=== PATIENT | female | born 1975 | race Caucasian/White ===

== ENCOUNTER 2023-09-12 18:28 | Inpatient (IN) | payer OTHER ==
[2023-09-12] MEDS ORDERED: SODIUM CHLORIDE 0.9% 500 ML 500 ML IV STA (18:37)
[2023-09-12] MEDS ORDERED: LORazepam 2 MG/ML INJ IV STA ×3 (18:38→20:34)
[2023-09-12] MEDS ORDERED: LABETALOL 5 MG/ML VIAL MDV IVP STA (18:42)
--- NOTE | 2023-09-12 18:42 | ED ---
General Adult HPI - General Stated complaint: Hypertension Time Seen by Provider: 09/12/23 18:30 Source: patient, RN notes reviewed, old records reviewed - History of Present Illness Initial comments: This is a 47-year-old female who complains of high blood pressure. States she was going to [facility] for her methamphetamine abuse and heroin abuse. Patient states when she got there they took her blood pressure was severely elevated and she had a mild headache so they sent to the emergency department. Patient denies any numbness or focal weakness. Patient denies chest pain or difficulty breathing. Patient denies abdominal pain patient denies nausea vomiting or diarrhea. Patient denies any recent fever chills or cough - Related Data Allergies Allergy/AdvReac Type Severity Reaction Status Date / Time No Known Allergies Allergy Verified 09/12/23 18:53 Review of Systems ROS Statement: Those systems with pertinent positive or pertinent negative responses have been documented in the HPI. ROS Other: All systems not noted in ROS Statement are negative. General Exam - General Exam Comments Initial Comments: GENERAL: Patient is well-developed and well-nourished. Patient is nontoxic and well- hydrated and is in no acute distress. ENT: Neck is soft and supple. No significant lymphadenopathy is noted. Oropharynx is clear. Moist mucous membranes. Neck has full range of motion without eliciting any pain. EYES: The sclera were anicteric and conjunctiva were pink and moist. Extraocular movements were intact and pupils were equal round and reactive to light. Eyelids were unremarkable. PULMONARY: Unlabored respirations. Good breath sounds bilaterally. No audible rales rhonchi or wheezing was noted. CARDIOVASCULAR: There is a regular rate and rhythm without any murmurs gallops or rubs. ABDOMEN: Soft and nontender with normal bowel sounds. SKIN: Skin is clear with no lesions or rashes and otherwise unremarkable. NEUROLOGIC: Patient is alert and oriented x3. Cranial nerves II through XII are grossly intact. Motor and sensory are also intact. Normal speech, volume and content. Symmetrical smile. MUSCULOSKELETAL: Normal extremities with adequate strength and full range of motion. LYMPHATICS: No significant lymphadenopathy is noted PSYCHIATRIC: Normal psychiatric evaluation. Course Vital Signs 09/12/23 09/12/23 09/12/23 18:33 18:51 19:44 Temperature 98.2 F Pulse Rate 70 74 73 Respiratory 18 18 18 Rate Blood Pressure 244/129 219/132 164/112 O2 Sat by Pulse 98 96 92 L Oximetry Medical Decision Making - Medical Decision Making EKG was interpreted by myself. EKG shows a sinus rhythm at 70 bpm ID interval 285 QRSs 106 QT interval 442 QTC is 475 per patient has biphasic T waves. There is no ST segment elevation. Patient refused her chest x-ray Was pt. sent in by a medical professional or institution (, DEANA, IN HOME CAREGIVER, urgent care, hospital, or shelter...) When possible be specific @ -Was sent to us from [facility] Did you speak to anyone other than the patient for history (EMS, parent, family, police, friend...)? What history was obtained from this source @ -No Did you review nursing and triage notes (agree or disagree)? Why? @ -I reviewed and agree with nursing and triage notes Were old charts reviewed (outside hosp., previous admission, EMS record, old EKG, old radiological studies, urgent care reports/EKG's, shelter records)? Report findings @ -No old charts were reviewed Differential Diagnosis (chest pain, altered mental status, abdominal pain women, abdominal pain men, vaginal bleeding, weakness, fever, dyspnea, syncope, headache, dizziness, GI bleed, back pain, seizure, CVA, palpatations, mental health, musculoskeletal)? @ -Differential Headache: Migraine, tension, cluster, carbon monoxide, central venous thrombosis, pension karma temporal arteritis, acute closure glaucoma, intercranial hemorrhage, mastoiditis, sinusitis, head injury, this is not meant to be an all-inclusive list. EKG interpreted by me (3pts min.). @ -As above X-rays interpreted by me (1pt min.). @ -She refused the chest x-ray CT interpreted by me (1pt min.). @ -CT of the brain showed no acute abnormality. U/S interpreted by me (1pt. min.). @ -None done What testing was considered but not performed or refused? (CT, X-rays, U/S, labs)? Why? @ -None What meds were considered but not given or refused? Why? @ -None Did you discuss the management of the patient with other professionals (professionals i.e. , DEANA, IN HOME CAREGIVER, lab, RT, psych nurse, secondary social studies teacher, human resources admin, teacher, chief administrative officer, patient case coordinator)? Give summary @ -I spoke with the [facility] hospitalist and they agreed to admit the patient Was smoking cessation discussed for >3mins.? @ -No Was critical care preformed (if so, how long)? @ -No Were there social determinants of health that impacted care today? How? (Homelessness, low income, unemployed, alcoholism, drug addiction, transpor tation, low edu. Level, literacy, decrease access to med. care, prison, rehab)? @ -No Was there de-escalation of care discussed even if they declined (Discuss DNR or withdrawal of care, Hospice)? DNR status @ -No What co-morbidities impacted this encounter? (DM, HTN, Smoking, COPD, CAD, Cancer, CVA, ARF, Chemo, Hep., AIDS, mental health diagnosis, sleep apnea, morbid obesity)? @ -None Was patient admitted / discharged? Hospital course, mention meds given and route, prescriptions, significant lab abnormalities, going to OR and other pertinent info. @ -Patient was given labetalol and about her pressure down a little however she continued to be elevated at 194/101 and her heart rate would occasionally jump up into the 09/[birth year]1929 range for a few seconds so I if the patient hydralazine at this time to bring her pressure down and I spoke with the [facility] hospitalist and admitted the patient. Patient's drug screen came back positive for methamphetamine and cocaine. Patient also got Ativan and was resting comfortably throughout her ED stay Undiagnosed new problem with uncertain prognosis? @ -No Drug Therapy requiring intensive monitoring for toxicity (Heparin, Nitro, Insulin, Cardizem)? @ -No Were any procedures done? @ -No Diagnosis/symptom? @ -Polypharmacy Acute, or Chronic, or Acute on Chronic? @ -Acute Uncomplicated (without systemic symptoms) or Complicated (systemic symptoms)? @ -Complicated Side effects of treatment? @ -No Exacerbation, Progression, or Severe Exacerbation? @ -No Poses a threat to life or bodily function? How? (Chest pain, [place], [place], pneumonia, PE, COPD, DKA, ARF, appy, cholecystitis, CVA, Diverticulitis, Homicidal, Suicidal, threat to staff... and all critical care pts) @ -Yes this could lead to sudden Diagnosis/symptom? @ -Hypertensive urgency Acute, or Chronic, or Acute on Chronic? @ -Acute Uncomplicated (without systemic symptoms) or Complicated (systemic symptoms)? @ -Complicated Side effects of treatment? @ -none Exacerbation, Progression, or Severe Exacerbation] @ -no Poses a threat to life or bodily function? @ -Yes this can lead to end organ dysfunction directly - Lab Data Result diagrams: 09/12/23 18:45 09/12/23 18:45 Lab Results 09/12/23 09/12/23 09/12/23 Range/Units 18:45 18:45 18:45 WBC 7.9 (3.8-10.6) k/uL RBC 4.48 (3.80-5.40) m/uL Hgb 14.1 (11.4-16.0) gm/dL Hct 40.7 (34.0-46.0) % MCV 91.0 (80.0-100.0) fL MCH 31.5 (25.0-35.0) pg MCHC 34.6 (31.0-37.0) g/dL RDW 15.4 (11.5-15.5) % Plt Count 209 (150-450) k/uL MPV 7.2 Neutrophils % 62 % Lymphocytes % 20 % Monocytes % 7 % Eosinophils % 7 % Basophils % 1 % Neutrophils # 4.9 (1.3-7.7) k/uL Lymphocytes # 1.6 (1.0-4.8) k/uL Monocytes # 0.6 (0-1.0) k/uL Eosinophils # 0.6 (0-0.7) k/uL Basophils # 0.1 (0-0.2) k/uL PT 10.2 (10.0-12.5) sec INR 0.9 (<1.2) APTT 25.2 (22.0-30.0) sec Sodium (137-145) mmol/L Potassium (3.5-5.1) mmol/L Chloride (98-107) mmol/L Carbon Dioxide (22-30) mmol/L Anion Gap mmol/L BUN (7-17) mg/dL Creatinine (0.52-1.04) mg/dL Est GFR (CKD-EPI)AfAm (>60 ml/min/1.73 sqM) Est GFR (CKD-EPI)NonAf (>60 ml/min/1.73 sqM) Glucose (74-99) mg/dL Calcium (8.4-10.2) mg/dL Magnesium (1.6-2.3) mg/dL Total Bilirubin (0.2-1.3) mg/dL AST (14-36) U/L ALT (4-34) U/L Alkaline Phosphatase (38-126) U/L Troponin I (0.000-0.034) ng/mL Total Protein (6.3-8.2) g/dL Albumin (3.5-5.0) g/dL Urine Opiates Screen Not Detected (NotDetected) Ur Oxycodone Screen Not Detected (NotDetected) Urine Methadone Screen Not Detected (NotDetected) Ur Barbiturates Screen Not Detected (NotDetected) U Tricyclic Antidepress Not Detected (NotDetected) Ur Phencyclidine Scrn Not Detected (NotDetected) Ur Amphetamines Screen Detected H (NotDetected) U Methamphetamines Scrn Detected H (NotDetected) U Benzodiazepines Scrn Not Detected (NotDetected) Urine Cocaine Screen Detected H (NotDetected) U Marijuana (THC) Screen Not Detected (NotDetected) 09/12/23 09/12/23 Range/Units 18:45 18:45 WBC (3.8-10.6) k/uL RBC (3.80-5.40) m/uL Hgb (11.4-16.0) gm/dL Hct (34.0-46.0) % MCV (80.0-100.0) fL MCH (25.0-35.0) pg MCHC (31.0-37.0) g/dL RDW (11.5-15.5) % Plt Count (150-450) k/uL MPV Neutrophils % % Lymphocytes % % Monocytes % % Eosinophils % % Basophils % % Neutrophils # (1.3-7.7) k/uL Lymphocytes # (1.0-4.8) k/uL Monocytes # (0-1.0) k/uL Eosinophils # (0-0.7) k/uL Basophils # (0-0.2) k/uL PT (10.0-12.5) sec INR (<1.2) APTT (22.0-30.0) sec Sodium 136 L (137-145) mmol/L Potassium 4.1 (3.5-5.1) mmol/L Chloride 97 L (98-107) mmol/L Carbon Dioxide 29 (22-30) mmol/L Anion Gap 10 mmol/L BUN 33 H (7-17) mg/dL Creatinine 1.12 H (0.52-1.04) mg/dL Est GFR (CKD-EPI)AfAm 67 (>60 ml/min/1.73 sqM) Est GFR (CKD-EPI)NonAf 58 (>60 ml/min/1.73 sqM) Glucose 98 (74-99) mg/dL Calcium 9.0 (8.4-10.2) mg/dL Magnesium 2.0 (1.6-2.3) mg/dL Total Bilirubin 0.7 (0.2-1.3) mg/dL AST 33 (14-36) U/L ALT 24 (4-34) U/L Alkaline Phosphatase 97 (38-126) U/L Troponin I 0.020 (0.000-0.034) ng/mL Total Protein 6.3 (6.3-8.2) g/dL Albumin 3.5 (3.5-5.0) g/dL Urine Opiates Screen (NotDetected) Ur Oxycodone Screen (NotDetected) Urine Methadone Screen (NotDetected) Ur Barbiturates Screen (NotDetected) U Tricyclic Antidepress (NotDetected) Ur Phencyclidine Scrn (NotDetected) Ur Amphetamines Screen (NotDetected) U Methamphetamines Scrn (NotDetected) U Benzodiazepines Scrn (NotDetected) Urine Cocaine Screen (NotDetected) U Marijuana (THC) Screen (NotDetected) Disposition Clinical Impression: Hypertensive urgency, Polypharmacy Disposition: ADMITTED IP TO THIS HOSP Referrals: None,Stated [Primary Care Provider] - 1-2 days Time of Disposition: 20:07
[2023-09-12 19:09] LABS: Basophils # (A) 0.1 k/uL (0-0.2); Basophils % (A) 1 %; Eosinophils # (A) 0.6 k/uL (0-0.7); Eosinophils % (A) 7 %; HCT 40.7 % (34.0-46.0); HGB 14.1 gm/dL (11.4-16.0); Lymphocytes # (A) 1.6 k/uL (1.0-4.8); Lymphocytes % (A) 20 %; MCH 31.5 pg (25.0-35.0); MCHC 34.6 g/dL (31.0-37.0); Mean Platelet Volume 7.2; Monocytes # (A) 0.6 k/uL (0-1.0); Monocytes % (A) 7 %; Neutrophils # (A) 4.9 k/uL (1.3-7.7); Neutrophils % (A) 62 %; Platelet Count 209 k/uL (150-450); RBC 4.48 m/uL (3.80-5.40); RDW 15.4 % (11.5-15.5); WBC 7.9 k/uL (3.8-10.6)
[2023-09-12 19:14] LABS: INR 0.9 (<1.2); Partial Thromboplastin Time 25.2 sec (22.0-30.0); Prothrombin Time 10.2 sec (10.0-12.5)
[2023-09-12 19:15] LABS: Cocaine Screen,Urine Detected (NotDetected); Phencyclidine Screen,Urine Not Detected (NotDetected); Urn Cannabinoid Scrn Not Detected (NotDetected)
[2023-09-12 19:16] LABS: Amphetamine Screen,Urine Detected (NotDetected); Barbiturate Screen,Urine Not Detected (NotDetected); Benzodiazepines Screen,Urine Not Detected (NotDetected); Methadone Screen, Urine Not Detected (NotDetected); Opiate Screen,Urine Not Detected (NotDetected); Oxycodone Screen, Urine Not Detected (NotDetected); Tricyclic Antidepressant,Urine Not Detected (NotDetected)
[2023-09-12 19:17] LABS: ALT 24 U/L (4-34); AST 33 U/L (14-36); African American GFR (CKD) 67 (>60 ml/min/1.73 sqM); Albumin 3.5 g/dL (3.5-5.0); Alkaline Phosphatase 97 U/L (38-126); Anion Gap 10 mmol/L; Blood Urea Nitrogen 33 mg/dL (7-17); Carbon Dioxide 29 mmol/L (22-30); Chloride 97 mmol/L (98-107); Glucose 98 mg/dL (74-99); Non-African American GFR(CKD) 58 (>60 ml/min/1.73 sqM); Potassium 4.1 mmol/L (3.5-5.1); Sodium 136 mmol/L (137-145); Total Bilirubin 0.7 mg/dL (0.2-1.3); Total Protein 6.3 g/dL (6.3-8.2)
--- NOTE | 2023-09-12 19:24 | CT ---
EXAMINATION TYPE: CT brain wo con CT DLP: 1113.4 mGycm, Automated exposure control for dose reduction was used. DATE OF EXAM: 09/12/2023 7:05 PM COMPARISON: None. CLINICAL INDICATION:Female, 47 years old with history of Hypertensive headache, Hypertensive headache TECHNIQUE: Brain: Axial CT images of the brain were obtained with coronal and sagittal reformats created and rev iewed. Contrast used: None. Oral contrast used: None. FINDINGS: Brain: Extra-axial spaces: No abnormal extra-axial fluid collections. Ventricular system: Within normal limits Cerebral parenchyma: No acute intraparenchymal hemorrhage or mass effect. The campbell-white junction is well differentiated. Cerebellum: Unremarkable. Mass effect: No evidence of midline shift. Intracranial vasculature: unremarkable Soft tissues: Normal. Calvarium/osseous structures: No depressed skull fracture. Paranasal sinuses and mastoid air cells: Mild scattered paranasal sinus disease. Visualized orbits: Orbital contents are intact. IMPRESSION: No acute intracranial process.
[2023-09-12] MEDS ORDERED: hydrALAZINE HCL 20 MG/ML 1 ML VIAL IVP STA (20:03)
[2023-09-12] MEDS ORDERED: SODIUM CHLORIDE 0.9% 1,000 ML IV ONE (20:07)
[2023-09-12] MEDS ORDERED: ACETAMINOPHEN TAB 500 MG TAB PO STA (20:25)
--- NOTE | 2023-09-12 21:47 | CT ---
EXAMINATION TYPE: CT brain wo con CT DLP: 1196.4 mGycm, Automated exposure control for dose reduction was used. DATE OF EXAM: 09/12/2023 9:25 PM COMPARISON: None. CLINICAL INDICATION:Female, 47 years old with history of Hypertension, Per ER doctor, BP stone above [address] and was screaming of a headache. TECHNIQUE: Brain: Axial CT images of the brain were obtained with coronal and sagittal reformats created and rev iewed. Contrast used: None. Oral contrast used: None. FINDINGS: Brain: Extra-axial spaces: No abnormal extra-axial fluid collections. Ventricular system: Within normal limits Cerebral parenchyma: No acute intraparenchymal hemorrhage or mass effect. The campbell-white junction is well differentiated. Cerebellum: Unremarkable. Mass effect: No evidence of midline shift. Intracranial vasculature: unremarkable Soft tissues: Normal. Calvarium/osseous structures: No depressed skull fracture. Paranasal sinuses and mastoid air cells: Mild scattered paranasal sinus disease. Visualized orbits: Orbital contents are intact. IMPRESSION: No acute intracranial process.
[2023-09-13] MEDS ORDERED: LORazepam 2 MG/ML INJ IV STA ×2 (06:27→06:30)
[2023-09-13] MEDS ORDERED: hydrALAZINE HCL 20 MG/ML 1 ML VIAL IVP STA (08:25)
[2023-09-13] MEDS: cloNIDine HCL 0.2 MG TAB PO SCH ×2 (10:42→21:33)
[2023-09-13 11:07] LABS: Basophils % (A) 0 %; Eosinophils # (A) 0.6 k/uL (0-0.7); Eosinophils % (A) 7 %; HCT 43.3 % (34.0-46.0); HGB 14.7 gm/dL (11.4-16.0); Lymphocytes # (A) 1.4 k/uL (1.0-4.8); Lymphocytes % (A) 16 %; MCH 31.2 pg (25.0-35.0); MCHC 34.1 g/dL (31.0-37.0); MCV 91.5 fL (80.0-100.0); Mean Platelet Volume 7.5; Monocytes # (A) 0.7 k/uL (0-1.0); Monocytes % (A) 7 %; Neutrophils % (A) 68 %; Platelet Count 235 k/uL (150-450); RBC 4.73 m/uL (3.80-5.40); RDW 15.7 % (11.5-15.5); WBC 8.9 k/uL (3.8-10.6)
[2023-09-13 11:19] LABS: ALT 22 U/L (4-34); AST 32 U/L (14-36); African American GFR (CKD) 74 (>60 ml/min/1.73 sqM); Albumin 3.4 g/dL (3.5-5.0); Alkaline Phosphatase 94 U/L (38-126); Anion Gap 11 mmol/L; Blood Urea Nitrogen 28 mg/dL (7-17); Carbon Dioxide 24 mmol/L (22-30); Chloride 106 mmol/L (98-107); Glucose 117 mg/dL (74-99); Non-African American GFR(CKD) 65 (>60 ml/min/1.73 sqM); Sodium 141 mmol/L (137-145); Total Bilirubin 0.7 mg/dL (0.2-1.3); Total Protein 6.3 g/dL (6.3-8.2)
[2023-09-13 11:35] LABS: Potassium 4.1 mmol/L (3.5-5.1)
[2023-09-13] MEDS: hydrALAZINE HCL 20 MG/ML 1 ML VIAL IVP PRN (13:26)
--- NOTE | 2023-09-13 13:32 | P.HPIM ---
History of Present Illness H&P Date: 09/13/23 History of present illness; patient is 47-year-old lady with past medical signif icant for polysubstance abuse who presented to the ER as a transfer from [place] for elevated blood pressure. Patient was being [place] for rehab for her methamphetamine and heroin abuse. On checking there she was found to have elevated blood pressure. Patient was complaining of headache. Denied any chest pain. There is no complaint of shortness of breath. No complain of nausea, v omiting abdominal pain. Because of this elevated blood pressure, patient was sent to the ER for further evaluation Initial lab work done in the ER showed WBC 7.9, hemoglobin 14.1, platelet count 209, sodium 1:30, potassium 4.1, BUN 33, creatinine 1.12, glucose 98, calcium 9 Urine drug screen positive for amphetamines , methamphetamines, cocaine EKG done in the ER showed heart rate of 78, no ST segment elevation or depression seen, no T-wave inversions seen. CT head done showed no acute intracranial process Patient admitted to internal medicine service REVIEW OF SYSTEMS: CONSTITUTIONAL: No fever, no malaise, no fatigue. HEENT: No recent visual problems or hearing problems. Denied any sore throat. CARDIOVASCULAR: As mentioned in HPI PULMONARY: As mentioned in HPI GASTROINTESTINAL: No diarrhea, no nausea, no vomiting, no abdominal pain. NEUROLOGICAL: No weakness, no numbness. HEMATOLOGICAL: Denies any bleeding or petechiae. GENITOURINARY: Denies any burning micturition, frequency, or urgency. MUSCULOSKELETAL/RHEUMATOLOGICAL: Denies any joint pain, swelling, or any muscle pain. ENDOCRINE: Denies any polyuria or polydipsia. The rest of the 14-point review of systems is negative. PHYSICAL EXAMINATION: GENERAL: The patient is alert and oriented x3, not in any acute distress. Well developed, well nourished. HEENT: Pupils are round and equally reacting to light. EOMI. No scleral icterus. No conjunctival pallor. Normocephalic, atraumatic. No pharyngeal erythema. No t hyromegaly. CARDIOVASCULAR: S1 and S2 present. No murmurs, rubs, or gallops. PULMONARY: Chest is clear to auscultation, no wheezing or crackles. ABDOMEN: Soft, nontender, nondistended, normoactive bowel sounds. No palpable organomegaly. MUSCULOSKELETAL: No joint swelling or deformity. EXTREMITIES: No cyanosis, clubbing, or pedal edema. NEUROLOGICAL: Gross neurological examination did not reveal any focal deficits. SKIN: No rashes. Assessment and plan Uncontrolled hypertension Episodes of SVT Polysubstance abuse Monitor vital signs Monitor CBC Monitor CMP Continue telemetry monitoring Ordered 2-D echo Start patient on hydralazine 25 mg 3 times daily Start patient on clonidine 0.2 mg twice a day Ordered IV hydralazine as needed for blood pressure more than 180/90 Consult cardiology Labs and medication were reviewed.. Continue same treatment. Continue with symptomatic treatment. Resume home medication. Monitor labs and vitals. DVT and GI prophylaxis. Further recommendations as per clinical course of the patient Dictation was produced using [employer] dictation software. please excuse any grammatical, word or spelling errors. Past Medical History Past Medical History: CVA/TIA, Hypertension Additional Past Medical History / Comment(s): Endocarditis History of Any Multi-Drug Resistant Organisms: None Reported Past Surgical History: Appendectomy, Section, Cholecystectomy, Joint Replacement Additional Past Surgical History / Comment(s): right hip replacement, X3, Past Psychological History: Depression Smoking Status: Current every day smoker Past Alcohol Use History: None Reported Past Drug Use History: Cocaine, Heroin, Marijuana, Methamphetamine, Opiates, Prescription Drug Abuse Medications and Allergies Home Medications Medication Instructions Recorded Confirmed Type No Known Home Medications 09/12/23 09/12/23 History Allergies Allergy/AdvReac Type Severity Reaction Status Date / Time No Known Allergies Allergy Verified 09/12/23 20:24 Physical Exam Vitals: Vital Signs Temp Pulse Resp BP Pulse Ox 09/13/23 09:13 78 18 185/119 96 09/13/23 08:42 80 22 194/122 97 09/13/23 07:48 153/125 09/13/23 07:34 112 H 18 193/112 95 09/13/23 06:20 97.8 F 78 18 220/126 98 09/13/23 04:00 67 138/99 09/13/23 03:00 65 139/101 09/13/23 02:00 69 142/102 09/13/23 01:00 98 138/99 09/13/23 00:00 98 132/105 09/12/23 23:54 18 132/105 09/12/23 23:00 73 19 163/116 91 L 09/12/23 22:00 81 18 190/106 09/12/23 21:54 129 H 20 190/106 92 L 09/12/23 21:00 75 181/103 09/12/23 20:41 69 18 165/123 90 L 09/12/23 20:26 199/181 09/12/23 20:00 65 194/105 94 L 09/12/23 19:44 73 18 164/112 92 L 09/12/23 19:09 77 97 09/12/23 18:51 74 18 219/132 96 09/12/23 18:33 98.2 F 70 18 244/129 98 Intake and Output 09/12/23 09/13/23 09/13/23 22:59 06:59 14:59 Other: Weight 61.235 kg Results CBC & Chem 7: 09/13/23 10:59 09/13/23 10:59 Labs: Abnormal Lab Results - Last 24 Hours (Table) 09/12/23 09/12/23 Range/Units 18:45 18:45 Sodium 136 L (137-145) mmol/L Chloride 97 L (98-107) mmol/L BUN 33 H (7-17) mg/dL Creatinine 1.12 H (0.52-1.04) mg/dL Ur Amphetamines Screen Detected H (NotDetected) U Methamphetamines Scrn Detected H (NotDetected) Urine Cocaine Screen Detected H (NotDetected)
[2023-09-13] MEDS ORDERED: hydrALAZINE HCL 25 MG TAB PO STA (13:34)
[2023-09-13] MEDS: hydrALAZINE HCL 25 MG TAB PO SCH ×2 (13:36→21:33)
[2023-09-13] MEDS: NITROGLYCERIN-D5W PMX 50 MG in DEXTROSE/WATER 1 250ML.BAG IV SCH (13:58)
[2023-09-13] MEDS ORDERED: ACETAMINOPHEN TAB 325 MG TAB PO STA (15:16)
--- NOTE | 2023-09-13 16:02 | P.CNPUL ---
History of Present Illness Consult date: 09/13/23 Requesting physician: Perry West Reason for consult: other (Hypertensive urgency) Chief complaint: Hypertension, drug withdrawal History of present illness: This is a 47-year-old female patient who was recently admitted to [facility] for cocaine and methamphetamine abuse. She was only there 1 day and she was found to have significant hypertension headaches and was broug ht here to the emergency room last evening. CT scan of the brain revealed no acute intracranial process. He had been having ongoing refractory hypertension despite multiple medications without much improvement. She is currently on a nitroglycerin drip at 5 mcg/m. She will be initiated on clevidipine for blood pressure control and Precedex. This will require intensive care unit admission and we are consulted for the same. She is seen in the emergency department. Awake, alert, restless and agitated. Blood pressure 208/119. Mean arterial pressure of 148. White count 8.9. Hemoglobin 14.7. Sodium 141 potassium 4.1. Bicarb 24. BUN 28. Creatinine 1.03. Glucose 117. Troponins negative 2. Urine drug screen positive for amphetamines, methamphetamines and cocaine. She is maintaining O2 saturations in the 90s on room air. EKG reveals sinus tachycardia in the 130s. Review of Systems ROS unobtainable: due to mental status Past Medical History Past Medical History: CVA/TIA, Hypertension Additional Past Medical History / Comment(s): Endocarditis History of Any Multi-Drug Resistant Organisms: None Reported Past Surgical History: Appendectomy, Section, Cholecystectomy, Joint Replacement Additional Past Surgical History / Comment(s): right hip replacement, X3, Past Psychological History: Depression Smoking Status: Current every day smoker Past Alcohol Use History: None Reported Past Drug Use History: Cocaine, Heroin, Marijuana, Methamphetamine, Opiates, Prescription Drug Abuse Medications and Allergies Home Medications Medication Instructions Recorded Confirmed Type No Known Home Medications 09/12/23 09/12/23 History Allergies Allergy/AdvReac Type Severity Reaction Status Date / Time No Known Allergies Allergy Verified 09/12/23 20:24 Physical Exam Vitals: Vital Signs Temp Pulse Resp BP Pulse Ox 09/13/23 14:39 84 22 208/119 09/13/23 13:40 85 18 178/115 09/13/23 13:25 84 18 224/150 09/13/23 11:07 81 22 220/139 09/13/23 11:00 83 208/139 98 09/13/23 10:15 140 H 09/13/23 09:13 78 18 185/119 96 09/13/23 08:42 80 22 194/122 97 09/13/23 07:48 153/125 09/13/23 07:34 112 H 18 193/112 95 09/13/23 06:20 97.8 F 78 18 220/126 98 09/13/23 04:00 67 138/99 09/13/23 03:00 65 139/101 09/13/23 02:00 69 142/102 09/13/23 01:00 98 138/99 09/13/23 00:00 98 132/105 09/12/23 23:54 18 132/105 09/12/23 23:00 73 19 163/116 91 L 09/12/23 22:00 81 18 190/106 09/12/23 21:54 129 H 20 190/106 92 L 09/12/23 21:00 75 181/103 09/12/23 20:41 69 18 165/123 90 L 09/12/23 20:26 199/181 09/12/23 20:00 65 194/105 94 L 09/12/23 19:44 73 18 164/112 92 L 09/12/23 19:09 77 97 09/12/23 18:51 74 18 219/132 96 09/12/23 18:33 98.2 F 70 18 244/129 98 GENERAL EXAM: Alert, restless 47-year-old female, on room air, fairly comfortable in no apparent distress. HEAD: Normocephalic. EYES: Normal reaction of pupils, equal size. NOSE: Clear with pink turbinates. THROAT: No erythema or exudates. NECK: No masses, no JVD. CHEST: No chest wall deformity. LUNGS: Equal air entry with no crackles, wheeze, rhonchi or dullness. CVS: S1 and S2 normal with no audible murmur, regular rhythm. ABDOMEN: No hepatosplenomegaly, normal bowel sounds, no guarding or rigidity. SPINE: No scoliosis or deformity SKIN: No rashes CENTRAL NERVOUS SYSTEM: No focal deficits, tone is normal in all 4 extremities. EXTREMITIES: There is no peripheral edema. No clubbing, no cyanosis. Peripheral pulses are intact. Results - Laboratory Findings CBC and BMP: 09/13/23 10:59 09/13/23 10:59 PT/INR, D-dimer PT 10.2 sec (10.0-12.5) 09/12/23 18:45 INR 0.9 (<1.2) 09/12/23 18:45 Abnormal lab findings: Abnormal Labs 09/12/23 09/12/23 09/13/23 18:45 18:45 10:59 RDW 15.7 H Sodium 136 L Chloride 97 L BUN 33 H Creatinine 1.12 H Glucose Albumin Ur Amphetamines Screen Detected H U Methamphetamines Scrn Detected H Urine Cocaine Screen Detected H 09/13/23 10:59 RDW Sodium Chloride BUN 28 H Creatinine Glucose 117 H Albumin 3.4 L Ur Amphetamines Screen U Methamphetamines Scrn Urine Cocaine Screen Assessment and Plan Assessment: Hypertensive urgency suspect secondary to polysubstance withdrawal Episodes of supraventricular tachycardia secondary to above Polysubstance abuse with urine drug screen positive for amphetamines, methamphetamines and cocaine Recent admission to [facility] and found to be hypertensive History of CVA/TIA History of hypertension History of endocarditis Chronic and ongoing tobacco dependence History of depression History of polysubstance abuse including cocaine, heroin, marijuana, methamphetamines, opiates, and prescription and drug abuse Plan: The patient was seen and evaluated Computed tomography scan of the brain, EKGs, labs and medications reviewed Continue nitroglycerin drip and titrate up as tolerated Initiate clevidipine infusion Initiate Precedex infusion Echocardiogram pending Admit to the intensive care unit We will continue to follow and make further recommendations based on her clinical status I have personally seen and examined the patient, performed the documentation and the assessment and plan as written. Number of minutes spent on the visit: 20.
[2023-09-13] MEDS: DEXMEDETOMIDINE/0.9% NACL(PMX) 400 MCG in EMPTY BAG 1 BAG IV SCH ×2 (16:04→23:56)
[2023-09-13] MEDS: CLEVIDIPINE BUTYRATE 25 MG in EMPTY BAG 1 BAG IV SCH ×5 (16:07→23:22)
--- NOTE | 2023-09-13 17:09 | CA ---
Transthoracic Echo Report Name: Cinthya Mas Age: 47 Gender: F : 1975 Exam Date: 09/13/2023 15:20 Exam Location: [facility] Ht (in): 63 Wt (lb): 135 Ordering Physician: Perry West MD Attending/Referring Phys: [employer] Operator Head Josue Walker Procedure CPT: Indications: Hypertension uncontrolled Cardiac Hx: Technical Quality: Fair Contrast 1: Total Dose (mL): Contrast 2: Total Dose (mL): MEASUREMENTS (Male / Female) Normal Values 2D ECHO LV Diastolic Diameter PLAX 3.9 cm 4.2 - 5.9 / 3.9 - 5.3 cm LV Systolic Diameter PLAX 2.6 cm IVS Diastolic Thickness 1.0 cm 0.6 - 1.0 / 0.6 - 0.9 cm LVPW Diastolic Thickness 1.4 cm 0.6 - 1.0 / 0.6 - 0.9 cm LV Relative Wall Thickness 0.6 RV Internal Dim ED PLAX 3.6 cm LVOT Diameter 2.0 cm Aortic Root Diameter 2.6 cm LA Systolic Diameter LX 3.5 cm 3.0 - 4.0 / 2.7 - 3.8 cm LV Diastolic Volume MOD BP 38.2 cm??? 67 - 155 / 56 - 104 cm??? LV Systolic Volume MOD BP 9.5 cm??? 22 - 58 / 19 - 49 cm??? LV Ejection Fraction MOD BP 75.1 % >= 55 % LV Cardiac Index MOD BP 1504.2 cm???/min???m??? LV Diastolic Volume MOD 4C 42.8 cm??? LV Systolic Volume MOD 4C 9.5 cm??? LV Ejection Fraction MOD 4C 77.9 % LV Cardiac Index MOD 4C 1749.8 cm???/min???m??? LV Diastolic Length 4C 7.2 cm LV Systolic Length 4C 6.0 cm LV Diastolic Volume MOD 2C 34.4 cm??? LV Systolic Volume MOD 2C 9.1 cm??? LV Ejection Fraction MOD 2C 73.4 % LV Cardiac Index MOD 2C 1325.9 cm???/min???m??? LV Diastolic Length 2C 7.2 cm LV Systolic Length 2C 5.5 cm LA Volume 37.1 cm??? 18 - 58 / 22 - 52 cm??? LA Volume Index 22.3 cm???/m??? 16 - 28 cm???/m??? DOPPLER AV Peak Velocity 154.6 cm/s AV Peak Gradient 9.6 mmHg LVOT Peak Velocity 99.4 cm/s LVOT Peak Gradient 3.9 mmHg LVOT Velocity Time Integral 13.2 cm LVOT Stroke Volume 40.5 cm??? LVOT Stroke Volume Index 24.7 ml/m??? LVOT Cardiac Index 2123.7 cm???/min???m??? AV Area Cont Eq pk 2.0 cm??? MV Peak Velocity 144.1 cm/s MV Peak Gradient 8.3 mmHg MV Mean Velocity 65.8 cm/s MV Mean Gradient 2.1 mmHg MV Velocity Time Integral 30.8 cm TR Peak Velocity 321.3 cm/s TR Peak Gradient 41.3 mmHg Right Ventricular Systolic Press 46.3 mmHg PV Peak Velocity 113.7 cm/s PV Peak Gradient 5.2 mmHg FINDINGS Left Ventricle Normal LV size. Moderate to ling concentric LVH. Left ventricular ejection fraction is estimated at 65-70 %. Right Ventricle Normal right ventricular size. RVSP= 46mmHg. Right Atrium Mild right atrial dilatation. Left Atrium Normal left atrial size. Mitral Valve Structurally normal mitral valve. No mitral stenosis. No mitral regurgitation. Aortic Valve Trileaflet aortic valve. No aortic regurgitation. No aortic stenosis. Tricuspid Valve Structurally normal tricuspid valve. Severe TR. Pulmonic Valve Pulmonic valve not well visualized. No pulmonic regurgitation. Pericardium Normal pericardium. Aorta Normal size aortic root. CONCLUSIONS Concentric left ventricular hypertrophy with normal LV function Mild pulmonary hypertension Severe tricuspid regurgitation Previewed by: Dr. Tariq Montes MD (Electronically Signed) Final Date: 13 September 2023 17:08
[2023-09-13] MEDS ORDERED: NALOXONE 0.4 MG/ML 1 ML VIAL IV PRN (18:38)
[2023-09-13] MEDS ORDERED: ACETAMINOPHEN TAB 325 MG TAB PO PRN (18:38)
[2023-09-13 19:00] LABS: Glucose,Whole Blood 137 mg/dL (70-110)
[2023-09-14] MEDS: CLEVIDIPINE BUTYRATE 25 MG in EMPTY BAG 1 BAG IV SCH ×2 (01:12→03:19)
[2023-09-14] MEDS: DEXMEDETOMIDINE/0.9% NACL(PMX) 400 MCG in EMPTY BAG 1 BAG IV SCH (04:23)
[2023-09-14 06:42] LABS: Basophils % (A) 0 %; Eosinophils # (A) 0.2 k/uL (0-0.7); Eosinophils % (A) 2 %; HCT 47.2 % (34.0-46.0); HGB 15.4 gm/dL (11.4-16.0); Lymphocytes # (A) 1.7 k/uL (1.0-4.8); Lymphocytes % (A) 18 %; MCH 30.6 pg (25.0-35.0); MCHC 32.7 g/dL (31.0-37.0); MCV 93.4 fL (80.0-100.0); Mean Platelet Volume 7.4; Monocytes # (A) 0.5 k/uL (0-1.0); Monocytes % (A) 6 %; Neutrophils # (A) 6.6 k/uL (1.3-7.7); Neutrophils % (A) 71 %; Platelet Count 231 k/uL (150-450); RBC 5.05 m/uL (3.80-5.40); WBC 9.4 k/uL (3.8-10.6)
[2023-09-14 06:56] LABS: African American GFR (CKD) 67 (>60 ml/min/1.73 sqM); Anion Gap 12 mmol/L; Blood Urea Nitrogen 23 mg/dL (7-17); Calcium 9.6 mg/dL (8.4-10.2); Carbon Dioxide 19 mmol/L (22-30); Chloride 105 mmol/L (98-107); Glucose 110 mg/dL (74-99); Non-African American GFR(CKD) 58 (>60 ml/min/1.73 sqM); Potassium 4.9 mmol/L (3.5-5.1); Sodium 136 mmol/L (137-145)
--- NOTE | 2023-09-14 07:16 | P.CRDCN ---
History of Present Illness Consult date: 09/14/23 Chief complaint: Headache History of present illness: The patient is a 47-year-old female patient with a past medical history significant for hypertension and smoking and history of drug abuse. The patient was brought to the hospital from the rehab facility because of elevated blood pressure. The only symptoms she was experiencing his headache. She reported no pain in the chest and no shortness of breath and no dizziness or lightheadedness and no feeling of heart racing or fluttering and no presyncope or syncope. The pressure was elevated and consistent with hypertension urgency. Subsequently she underwent further cardiac testing including computed tomography scan of brain and that showed no acute abnormalities and also chest x-ray showed no acute abnormalities. The EKG showed sinus mechanism with no significant ST or T-wave abnormalities noted. The echo showed normal LV systolic function with evidence of hypertensive heart disease/severe left ventricular hypertrophy as well as moderate pulmonary hypertension and severe tricuspid regurgitation. The patient is not aware of any prior history of coronary artery disease or congestive heart failure or cardiac arrhythmia and never seen any lease buyer before. She was tested positive for cocaine and amphetamine as well. The rest of the blood work came in to be unremarkable. The examination is remarkable for mild change in mental status/lethargy along with regular rate and rhythm and clear breathing sounds bilaterally and no lower extremity edema and soft nontender abdomen. Please note that acute coronary syndrome was ruled out and the troponin came in to be unremarkable Assessment Hypertension urgency Drug abuse as described above Pulmonary hypertension likely secondary to hypertensive heart disease Systemic hypertension Smoking Plan Continue the current medical regimen Add non-dihydropyridine calcium channel master to the current medical regimen to treat the hypertension and tachycardia Continue monitoring the blood pressure Continue monitoring the heart rate Past Medical History Past Medical History: CVA/TIA, Hypertension Additional Past Medical History / Comment(s): Endocarditis History of Any Multi-Drug Resistant Organisms: None Reported Past Surgical History: Appendectomy, Section, Cholecystectomy, Joint Replacement Additional Past Surgical History / Comment(s): right hip replacement, X3, Past Psychological History: Depression Smoking Status: Current every day smoker Past Alcohol Use History: None Reported Past Drug Use History: Cocaine, Heroin, Marijuana, Methamphetamine, Opiates, Prescription Drug Abuse Medications and Allergies Home Medications Medication Instructions Recorded Confirmed Type No Known Home Medications 09/12/23 09/12/23 History Allergies Allergy/AdvReac Type Severity Reaction Status Date / Time No Known Allergies Allergy Verified 09/12/23 20:24 Physical Exam Vitals: Vital Signs Temp Pulse Resp BP Pulse Ox 09/14/23 07:00 113 H 8 L 153/90 98 09/14/23 06:55 82 27 H 153/90 98 09/14/23 06:50 79 9 L 153/90 98 09/14/23 06:45 75 23 98 09/14/23 06:40 134 H 29 H 97 09/14/23 06:35 97 27 H 145/104 99 09/14/23 06:30 158 H 22 97 09/14/23 06:25 77 32 H 154/92 97 09/14/23 06:20 89 29 H 154/92 97 09/14/23 06:15 96 7 L 133/107 99 09/14/23 06:10 111 H 26 H 133/107 97 09/14/23 06:05 104 H 31 H 133/107 98 09/14/23 06:00 116 H 28 H 124/103 98 09/14/23 05:55 77 11 L 124/103 98 09/14/23 05:50 82 6 L 124/103 98 09/14/23 05:45 121 H 0 L 124/103 98 09/14/23 05:40 89 11 L 124/103 98 09/14/23 05:35 114 H 28 H 111/83 97 09/14/23 05:30 99 30 H 112/88 99 09/14/23 05:25 111 H 16 127/97 99 09/14/23 05:20 79 27 H 127/97 97 09/14/23 05:15 76 29 H 124/98 98 09/14/23 05:10 104 H 16 124/98 99 09/14/23 05:05 86 26 H 124/98 97 09/14/23 05:00 108 H 27 H 97 09/14/23 04:55 85 22 99 09/14/23 04:50 86 23 135/89 97 09/14/23 04:45 100 30 H 99 09/14/23 04:40 80 30 H 97 09/14/23 04:35 79 18 120/99 99 09/14/23 04:30 80 31 H 108/85 97 09/14/23 04:25 80 28 H 97 09/14/23 04:20 81 14 98 09/14/23 04:15 84 7 L 99 09/14/23 04:10 80 29 H 121/90 99 09/14/23 04:05 85 6 L 121/90 98 09/14/23 04:00 97.7 F 98 31 H 136/98 98 09/14/23 03:55 109 H 29 H 98 09/14/23 03:50 89 29 H 97 09/14/23 03:45 89 8 L 99 09/14/23 03:40 81 30 H 99 09/14/23 03:35 105 H 31 H 116/84 99 09/14/23 03:30 85 29 H 121/88 99 09/14/23 03:25 122 H 22 121/88 98 09/14/23 03:20 105 H 6 L 121/88 98 09/14/23 03:15 113 H 6 L 127/99 99 09/14/23 03:10 78 12 127/99 99 09/14/23 03:05 81 29 H 127/99 97 09/14/23 03:00 84 20 115/86 98 09/14/23 02:55 80 11 L 115/86 98 09/14/23 02:50 79 29 H 115/86 98 09/14/23 02:45 80 39 H 117/91 98 09/14/23 02:40 81 27 H 117/91 98 09/14/23 02:35 111 H 29 H 117/91 99 09/14/23 02:30 80 28 H 98 09/14/23 02:25 78 22 98 09/14/23 02:20 84 17 130/101 99 09/14/23 02:15 82 22 98 09/14/23 02:10 111 H 9 L 99 09/14/23 02:05 80 28 H 123/87 98 09/14/23 02:00 216 H 27 H 135/91 98 09/14/23 01:55 82 25 H 135/91 98 09/14/23 01:50 82 28 H 135/91 98 09/14/23 01:45 83 24 133/115 98 09/14/23 01:40 85 20 133/115 98 09/14/23 01:35 83 32 H 133/115 97 09/14/23 01:30 82 11 L 99 09/14/23 01:25 118 H 28 H 98 09/14/23 01:20 79 30 H 149/100 98 09/14/23 01:15 83 10 L 99 09/14/23 01:10 85 30 H 99 09/14/23 01:05 73 8 L 136/115 98 09/14/23 01:00 112 H 28 H 157/102 98 09/14/23 00:55 85 24 157/102 98 09/14/23 00:50 86 27 H 121/97 98 09/14/23 00:45 85 33 H 118/101 97 09/14/23 00:40 80 29 H 118/101 98 09/14/23 00:35 85 30 H 118/101 97 09/14/23 00:30 115 H 32 H 137/105 97 09/14/23 00:25 102 H 10 L 137/105 98 09/14/23 00:20 83 11 L 98 09/14/23 00:15 80 28 H 152/109 98 09/14/23 00:10 115 H 27 H 152/109 98 09/14/23 00:05 81 30 H 152/109 97 09/14/23 00:00 97.7 F 83 29 H 143/112 98 09/13/23 23:55 118 H 29 H 143/112 98 09/13/23 23:50 86 31 H 143/112 98 09/13/23 23:45 81 27 H 149/112 98 09/13/23 23:40 123 H 27 H 149/112 98 09/13/23 23:35 85 27 H 149/112 98 09/13/23 23:30 116 H 10 L 168/102 98 09/13/23 23:25 85 26 H 168/102 98 09/13/23 23:20 82 23 168/102 98 09/13/23 23:15 80 15 163/109 98 09/13/23 23:10 77 31 H 163/109 98 09/13/23 23:05 86 25 H 163/109 98 09/13/23 23:00 107 H 30 H 149/115 98 09/13/23 22:55 122 H 15 149/115 98 09/13/23 22:50 85 30 H 149/115 97 09/13/23 22:45 112 H 31 H 165/106 98 09/13/23 22:40 87 14 165/106 98 09/13/23 22:35 86 32 H 165/106 98 09/13/23 22:30 78 27 H 127/109 98 09/13/23 22:25 121 H 11 L 135/116 98 09/13/23 22:20 123 H 12 135/116 98 09/13/23 22:15 86 11 L 140/114 99 09/13/23 22:10 88 13 140/114 98 09/13/23 22:05 130 H 27 H 140/114 98 09/13/23 22:00 82 11 L 147/114 98 09/13/23 21:55 123 H 27 H 147/114 98 09/13/23 21:50 118 H 11 L 147/114 98 09/13/23 21:45 79 9 L 144/92 98 09/13/23 21:40 80 27 H 144/92 98 09/13/23 21:35 130 H 37 H 144/92 97 09/13/23 21:30 85 29 H 143/114 98 09/13/23 21:25 86 13 143/114 98 09/13/23 21:20 114 H 29 H 143/114 97 09/13/23 21:15 80 22 156/108 97 09/13/23 21:10 71 28 H 133/102 97 09/13/23 21:05 72 29 H 133/102 97 09/13/23 21:00 74 31 H 150/102 97 09/13/23 20:55 72 25 H 150/102 97 09/13/23 20:50 91 16 150/102 98 09/13/23 20:45 73 33 H 163/102 97 09/13/23 20:40 90 30 H 163/102 98 09/13/23 20:35 86 16 163/102 98 09/13/23 20:30 81 29 H 171/111 97 09/13/23 20:25 133 H 18 171/111 97 09/13/23 20:20 69 28 H 171/111 97 09/13/23 20:15 78 28 H 179/101 97 09/13/23 20:10 84 29 H 179/101 97 09/13/23 20:05 93 30 H 179/101 96 09/13/23 20:00 73 29 H 169/112 97 09/13/23 19:55 69 29 H 169/112 97 09/13/23 19:50 74 27 H 169/112 97 09/13/23 19:45 73 28 H 171/113 96 09/13/23 19:40 83 28 H 171/113 96 09/13/23 19:35 147 H 27 H 171/113 96 09/13/23 19:30 73 25 H 168/105 96 09/13/23 19:25 76 29 H 168/105 96 09/13/23 19:20 76 28 H 168/105 97 09/13/23 19:15 78 28 H 183/105 95 09/13/23 19:10 72 28 H 183/105 95 09/13/23 19:05 81 30 H 183/105 96 09/13/23 19:00 72 10 L 195/132 97 09/13/23 18:55 90 10 L 195/132 97 09/13/23 18:53 98.0 F 89 16 190/109 97 09/13/23 18:52 76 10 L 09/13/23 18:40 172/131 09/13/23 18:35 89 190/109 09/13/23 18:30 87 176/97 09/13/23 18:25 84 181/111 09/13/23 18:20 80 174/99 09/13/23 18:15 68 193/121 09/13/23 18:10 60 187/103 09/13/23 18:05 63 213/116 09/13/23 18:00 97.2 F L 70 199/118 09/13/23 17:55 62 199/118 96 09/13/23 17:50 55 L 197/115 96 09/13/23 17:45 97 161/111 97 09/13/23 17:35 69 201/126 97 09/13/23 17:31 64 218/136 97 09/13/23 17:27 85 205/144 97 09/13/23 17:15 67 211/149 97 09/13/23 17:00 78 240/147 09/13/23 16:53 85 240/147 98 09/13/23 16:45 80 218/137 99 09/13/23 16:38 79 231/130 97 09/13/23 16:30 83 233/142 100 09/13/23 16:23 79 235/144 99 09/13/23 16:18 79 235/144 97 09/13/23 16:00 76 238/149 09/13/23 15:00 83 204/138 09/13/23 14:39 84 22 208/119 09/13/23 13:40 85 18 178/115 09/13/23 13:25 84 18 224/150 09/13/23 11:07 81 22 220/139 09/13/23 11:00 83 208/139 98 09/13/23 10:15 140 H 09/13/23 09:13 78 18 185/119 96 09/13/23 08:42 80 22 194/122 97 09/13/23 07:48 153/125 09/13/23 07:34 112 H 18 193/112 95 Intake and Output 09/13/23 09/14/23 09/14/23 22:59 06:59 14:59 Intake Total 222.822 306.394 Output Total 170 435 Balance 52.822 -128.606 Intake: Intake, IV Titration 222.822 306.394 Amount Clevidipine Butyrate 25 157.700 145.968 mg In Empty Bag 1 bag @ 1 MG/HR 2 mls/hr IV .Q24H DIONNE Rx#:[id number] Dexmedetomidine/0.9% NaCl 23.372 152.501 (Pmx) 400 mcg In Empty Bag 1 bag @ 0.2 MCG/KG/HR 3.062 mls/hr IV .Q24H D[facility]NE Rx#:[id number] Nitroglycerin-D5w Pmx 50 41.750 7.925 mg In Dextrose/Water 1 250ml.bag @ 5 MCG/MIN 1.5 mls/hr IV .Q24H DIONNE Rx#: [id number] Output: Urine 170 435 Other: Voiding Method Indwelling Catheter Indwelling Catheter Weight 61 kg Results 09/14/23 05:43 09/14/23 05:43 Cardiac Enzymes 09/13/23 09/13/23 Range/Units 10:59 10:59 AST 32 (14-36) U/L Troponin I 0.017 (0.000-0.034) ng/mL CBC 09/13/23 09/14/23 Range/Units 10:59 05:43 WBC 8.9 9.4 (3.8-10.6) k/uL RBC 4.73 5.05 (3.80-5.40) m/uL Hgb 14.7 15.4 (11.4-16.0) gm/dL Hct 43.3 47.2 H (34.0-46.0) % Plt Count 235 231 (150-450) k/uL Comprehensive Metabolic Panel 09/13/23 09/14/23 Range/Units 10:59 05:43 Sodium 141 136 L (137-145) mmol/L Potassium 4.1 4.9 (3.5-5.1) mmol/L Chloride 106 105 (98-107) mmol/L Carbon Dioxide 24 19 L (22-30) mmol/L BUN 28 H 23 H (7-17) mg/dL Creatinine 1.03 1.12 H (0.52-1.04) mg/dL Glucose 117 H 110 H (74-99) mg/dL Calcium 9.0 9.6 (8.4-10.2) mg/dL AST 32 (14-36) U/L ALT 22 (4-34) U/L Alkaline Phosphatase 94 (38-126) U/L Total Protein 6.3 (6.3-8.2) g/dL Albumin 3.4 L (3.5-5.0) g/dL Current Medications Generic Name Dose Route Start Last Admin Trade Name Freq PRN Reason Stop Dose Admin Acetaminophen 650 mg 09/13/23 18:38 Acetaminophen Tab 325 Mg Tab PO Q4HR PRN Fever and/or Mild Pain Clonidine 0.2 mg 09/13/23 11:00 09/13/23 21:33 Clonidine Hcl 0.2 Mg Tab PO 0.2 mg BID DIONNE Administration Hydralazine HCl 10 mg 09/13/23 10:32 09/13/23 13:26 Hydralazine Hcl 20 Mg/Ml 1 Ml Vial IVP 10 mg Q6HR PRN Administration Blood Pressure - High Hydralazine HCl 25 mg 09/13/23 16:00 09/13/23 21:33 Hydralazine Hcl 25 Mg Tab PO 25 mg TID DIONNE Administration Nitroglycerin/Dextrose 50 mg/ 250 mls @ 1.5 mls/hr 09/13/23 13:45 09/14/23 02:37 IV Solution IV 0 mcg/min .Q24H DIONNE 0 mls/hr Titration Protocol 5 MCG/MIN Clevidipine 25 mg/ IV Solution 50 mls @ 2 mls/hr 09/13/23 15:30 09/14/23 05:41 IV 0 mg/hr .Q24H D[facility] 0 mls/hr Titration Protocol 1 MG/HR Dexmedetomidine HCl 400 mcg/ 100 mls @ 3.062 mls/hr 09/13/23 15:30 09/14/23 06:26 IV Solution IV 0.6 mcg/kg/hr .Q24H D[facility] 9.185 mls/hr Titration Protocol 0.2 MCG/KG/HR Naloxone HCl 0.2 mg 09/13/23 18:38 Naloxone 0.4 Mg/Ml 1 Ml Vial IV Q2M PRN Opioid Reversal Intake and Output 09/13/23 09/14/23 09/14/23 22:59 06:59 14:59 Intake Total 222.822 306.394 Output Total 170 435 Balance 52.822 -128.606 Intake: Intake, IV Titration 222.822 306.394 Amount Clevidipine Butyrate 25 157.700 145.968 mg In Empty Bag 1 bag @ 1 MG/HR 2 mls/hr IV .Q24H [facility] Rx#:[id number] Dexmedetomidine/0.9% NaCl 23.372 152.501 (Pmx) 400 mcg In Empty Bag 1 bag @ 0.2 MCG/KG/HR 3.062 mls/hr IV .Q24H [facility] Rx#:[id number] Nitroglycerin-D5w Pmx 50 41.750 7.925 mg In Dextrose/Water 1 250ml.bag @ 5 MCG/MIN 1.5 mls/hr IV .Q24H [facility] Rx#: [id number] Output: Urine 170 435 Other: Voiding Method Indwelling Catheter Indwelling Catheter Weight 61 kg 09/14/23 05:43 09/14/23 05:43
[2023-09-14] MEDS: hydrALAZINE HCL 25 MG TAB PO SCH ×3 (08:42→21:03)
[2023-09-14] MEDS: DILTIAZEM ORAL 30 MG TAB PO SCH ×3 (08:42→21:03)
[2023-09-14] MEDS: cloNIDine HCL 0.2 MG TAB PO SCH (08:55)
[2023-09-14] MEDS: QUEtiapine 25 MG TAB PO SCH ×3 (08:55→21:04)
--- NOTE | 2023-09-14 12:40 | P.PN ---
Subjective Progress Note Date: 09/14/23 This is a 47-year-old female patient who was recently admitted to [facility] for cocaine and methamphetamine abuse. She was only there 1 day and she was found to have significant hypertension headaches and was brought here to the emergency room last evening. CT scan of the brain revealed no acute intracranial process. He had been having ongoing refractory hypertension despite multiple medications without much improvement. She is currently on a nitroglycerin drip at 5 mcg/m. She will be initiated on clevidipine for blood pressure control and Precedex. This will require i ntensive care unit admission and we are consulted for the same. She is seen in the emergency department. Awake, alert, restless and agitated. Blood pressure 208/119. Mean arterial pressure of 148. White count 8.9. Hemoglobin 14.7. Sodium 141 potassium 4.1. Bicarb 24. BUN 28. Creatinine 1.03. Glucose 117. Troponins negative 2. Urine drug screen positive for amphetamines, methamphetamines and cocaine. She is maintaining O2 saturations in the 90s on room air. EKG reveals sinus tachycardia in the 130s. The patient is seen today 09/14/2023 in follow-up in the intensive care unit. She is currently resting comfortably in bed. Awake and alert in no acute distress. She is continued on Precedex at 0.4 mcg/kg per hour. He is maintaining good O2 saturation in the mid 90s on room air. She's been afebrile. Hemodynamically stable. Having some episodes of brief SVT. Cardiology is consulted. Echocardiogram revealed concentric LVH with normal LV function. Mild pulmonary hypertension. Severe tricuspid regurgitation. White count 9.4. Hemoglobin 15.4. Platelets 231. Sodium 136. Potassium 4.9. Bicarb 19. BUN 23. Creatinine 1.12. Glucose 110. She is continued on clonidine, Cardizem, hydralazine for blood pressure control. She is off the clevidipine and nitroglycerin drips. Objective - Vital Signs Vital signs: Vital Signs Temp 97.7 F 09/14/23 08:00 Pulse 79 09/14/23 11:00 Resp 21 09/14/23 11:00 BP 111/75 09/14/23 11:00 Pulse Ox 97 09/14/23 11:00 FiO2 Intake & Output 09/13/23 09/14/23 09/14/23 18:59 06:59 18:59 Intake Total 78.835 450.381 235.186 Output Total 605 460 Balance 78.835 -154.619 -224.814 Weight 61 kg Intake: Intake, IV Titration 78.835 450.381 35.186 Amount Clevidipine Butyrate 25 50.000 253.668 mg In Empty Bag 1 bag @ 1 MG/HR 2 mls/hr IV .Q24H [facility] Rx#:[id number] Dexmedetomidine/0.9% NaCl 20.310 155.563 35.186 (Pmx) 400 mcg In Empty Bag 1 bag @ 0.2 MCG/KG/HR 3.062 mls/hr IV .Q24H [facility]IONNE Rx#:[id number] Nitroglycerin-D5w Pmx 50 8.525 41.150 mg In Dextrose/Water 1 250ml.bag @ 5 MCG/MIN 1.5 mls/hr IV .Q24H [facility]IONNE Rx#: [id number] Oral 200 Output: Urine 605 460 Other: Voiding Method Indwelling Catheter Indwelling Catheter - Exam GENERAL EXAM: Alert, 47-year-old female, on room air, comfortable in no apparent distress. HEAD: Normocephalic. EYES: Normal reaction of pupils, equal size. NOSE: Clear with pink turbinates. THROAT: No erythema or exudates. NECK: No masses, no JVD. CHEST: No chest wall deformity. LUNGS: Equal air entry with no crackles, wheeze, rhonchi or dullness. CVS: S1 and S2 normal with no audible murmur, regular rhythm. ABDOMEN: No hepatosplenomegaly, normal bowel sounds, no guarding or rigidity. SPINE: No scoliosis or deformity SKIN: No rashes CENTRAL NERVOUS SYSTEM: No focal deficits, tone is normal in all 4 extremities. EXTREMITIES: There is no peripheral edema. No clubbing, no cyanosis. Peripheral pulses are intact. - Labs CBC & Chem 7: 09/14/23 05:43 09/14/23 05:43 Labs: Abnormal Lab Results - Last 24 Hours (Table) 09/13/23 09/14/23 09/14/23 Range/Units 18:58 05:43 05:43 Hct 47.2 H (34.0-46.0) % RDW 16.0 H (11.5-15.5) % Sodium 136 L (137-145) mmol/L Carbon Dioxide 19 L (22-30) mmol/L BUN 23 H (7-17) mg/dL Creatinine 1.12 H (0.52-1.04) mg/dL Glucose 110 H (74-99) mg/dL POC Glucose (mg/dL) 137 H (70-110) mg/dL Assessment and Plan Assessment: Hypertensive urgency suspect secondary to polysubstance withdrawal Episodes of supraventricular tachycardia secondary to above Polysubstance abuse with urine drug screen positive for amphetamines, methamphetamines and cocaine Recent admission to [facility] and found to be hypertensive History of CVA/TIA History of hypertension History of endocarditis Chronic and ongoing tobacco dependence History of depression History of polysubstance abuse including cocaine, heroin, marijuana, methamphetamines, opiates, and prescription and drug abuse Plan: The patient was seen and evaluated Labs and medications reviewed Continue Precedex infusion for a total of 24 hours Stable and on room air Blood pressure improved and on oral medications We will continue to follow I have personally seen and examined the patient, performed the documentation and the assessment and plan as written. Number of minutes spent on the visit: 10.
[2023-09-14] MEDS: NITROGLYCERIN-D5W PMX 50 MG in DEXTROSE/WATER 1 250ML.BAG IV SCH (15:05)
--- NOTE | 2023-09-14 18:55 | P.PN ---
Subjective Progress Note Date: 09/14/23 History of present illness; patient is 47-year-old lady with past medical significant for polysubstance abuse who presented to the ER as a transfer from [place] for elevated blood pressure. Patient was being [place] for rehab for her methamphetamine and heroin abuse. On checking there she was found to have elevated blood pressure. Patient was complaining of headache. Denied any chest pain. There is no complaint of shortness of breath. No complain of nausea, vomiting abdominal pain. Because of this elevated blood pressure, patient was sent to the ER for further evaluation Initial lab work done in the ER showed WBC 7.9, hemoglobin 14.1, platelet count 209, sodium 1:30, potassium 4.1, BUN 33, creatinine 1.12, glucose 98, calcium 9 Urine drug screen positive for amphetamines , methamphetamines, cocaine EKG done in the ER showed heart rate of 78, no ST segment elevation or depressi on seen, no T-wave inversions seen. CT head done showed no acute intracranial process Patient admitted to internal medicine service 09/14/2023 Assumed care of the patient today. Remains in the intensive care unit. From [place] for polysubstance abuse with drug toxicology showing amphetamines, methamphetamines, cocaine. Patient was on IV cleviprex and IV precedex which are currently on hold. Would recommend to decrease clonidine at this time and begin weaning. Patient was also given nitro gtt for hypertension. Most recent BP 146/84. Patient is lethargic. Sodium 136, potassium 4.9, BUN 23, creatinine 1.12, glucose 110. Echocardiogram showing normal LV function mild pulmonary hypertension and severe TR. REVIEW OF SYSTEMS: CONSTITUTIONAL: No fever, no malaise, no fatigue. HEENT: No recent visual problems or hearing problems. Denied any sore throat. CARDIOVASCULAR: No chest pain, orthopnea, PND, no palpitations, no syncope. PULMONARY: No shortness of breath, no cough, no hemoptysis. GASTROINTESTINAL: No diarrhea, no nausea, no vomiting, no abdominal pain. NEUROLOGICAL: No headaches, no weakness, no numbness. Physical Examination -GENERAL: The patient is alert and oriented x2-3, lethargic, mildly drowsy Well developed, well nourished. Generally weak HEENT: Pupils are round and equally reacting to light. EOMI. No scleral icterus. No conjunctival pallor. Normocephalic, atraumatic. No pharyngeal erythema. No thyromegaly. CARDIOVASCULAR: S1 and S2 present. No murmurs, rubs, or gallops. PULMONARY: Chest is clear to auscultation, no wheezing , no crackles. ABDOMEN: Soft, nontender, nondistended, normoactive bowel sounds. No palpable organomegaly. MUSCULOSKELETAL: No joint swelling or deformity. -EXTREMITIES: No cyanosis, clubbing,. Bilateral pitting leg edema. NEUROLOGICAL: Gross neurological examination did not reveal any focal deficits. Diffuse weakness SKIN: No rashes. no petechiae. Assessment Uncontrolled hypertension requiring nitroglycerin likely due to withdrawal from cocaine Episodes of SVT Severe tricuspid regurgitation Polysubstance abuse Hx of CVA/TIA Hx of hypertension Hx of endocarditis Nicotine dependence GI prophylaxis DVT prophylaxis Full Code Plan Nitroglycerin GTT has been discontinued and blood pressure is more controlled Haldol and seroquel as needed Decrease clonidine to 0.1 mg BID Continue oral cardizem On PO hydralazine and IV hydralazine PRN Repeat labs in AM The impression and plan of care has been dictated by Elizabeth Blas, Nurse Practitioner as directed. Dr. Norma MD I have performed a history and physical examination and medical decision making of this patient, discussed the same with the dictator, and agree with the dictators assessment and plan as written, documented as a scribe. Based on total visit time, I have performed more than 50% of this visit. Objective - Vital Signs Vital signs: Vital Signs Temp 97.9 F 09/14/23 16:00 Pulse 121 H 09/14/23 17:00 Resp 13 09/14/23 17:00 BP 146/84 09/14/23 17:00 Pulse Ox 98 09/14/23 17:00 FiO2 Intake & Output 09/13/23 09/14/23 09/14/23 18:59 06:59 18:59 Intake Total 78.835 867.632 5671.176 Output Total 605 1070 Balance 78.835 -154.619 483.176 Weight 61 kg Intake: Intake, IV Titration 78.835 450.381 53.176 Amount Clevidipine Butyrate 25 50.000 253.668 mg In Empty Bag 1 bag @ 1 MG/HR 2 mls/hr IV .Q24H [facility] Rx#:[id number] Dexmedetomidine/0.9% NaCl 20.310 155.563 53.176 (Pmx) 400 mcg In Empty Bag 1 bag @ 0.2 MCG/KG/HR 3.062 mls/hr IV .Q24H [facility] Rx#:[id number] Nitroglycerin-D5w Pmx 50 8.525 41.150 mg In Dextrose/Water 1 250ml.bag @ 5 MCG/MIN 1.5 mls/hr IV .Q24H [facility] Rx#: [id number] Oral 1500 Output: Urine 605 1070 Other: Voiding Method Indwelling Catheter Indwelling Catheter - Labs CBC & Chem 7: 09/14/23 05:43 09/14/23 05:43 Labs: Abnormal Lab Results - Last 24 Hours (Table) 09/13/23 09/14/23 09/14/23 Range/Units 18:58 05:43 05:43 Hct 47.2 H (34.0-46.0) % RDW 16.0 H (11.5-15.5) % Sodium 136 L (137-145) mmol/L Carbon Dioxide 19 L (22-30) mmol/L BUN 23 H (7-17) mg/dL Creatinine 1.12 H (0.52-1.04) mg/dL Glucose 110 H (74-99) mg/dL POC Glucose (mg/dL) 137 H (70-110) mg/dL Assessment and Plan Time with Patient: Less than 30
[2023-09-14] MEDS: cloNIDine HCL 0.1 MG TAB PO SCH (21:03)
[2023-09-14] MEDS: HEPARIN SODIUM,PORCINE 5,000 UNIT/ML 1 ML VIAL SQ SCH (21:03)
[2023-09-15] MEDS: hydrALAZINE HCL 20 MG/ML 1 ML VIAL IVP PRN (03:20)
[2023-09-15] MEDS: CLEVIDIPINE BUTYRATE 25 MG in EMPTY BAG 1 BAG IV SCH (04:09)
[2023-09-15] MEDS: PANTOPRAZOLE 40 MG TABLET PO SCH (06:45)
--- NOTE | 2023-09-15 07:36 | P.PN ---
Subjective Progress Note Date: 09/15/23 Principal diagnosis: Hypertension urgency The patient is a 47-year-old female patient with a past medical history significant for hypertension and smoking and history of drug abuse. The patient was brought to the hospital from the rehab facility because of elevated blood pressure. The only symptoms she was experiencing his headache. She reported no pain in the chest and no shortness of breath and no dizziness or lightheadedness and no feeling of heart racing or fluttering and no presyncope or syncope. The pressure was elevated and consistent with hypertension urgency. Subsequently she underwent further cardiac testing including computed tomography scan of brain and that showed no acute abnormalities and also chest x-ray showed no acute abnormalities. The EKG showed sinus mechanism with no significant ST or T-wave abnormalities noted. The echo showed normal LV systolic function with evidence of hypertensive heart disease/severe left ventricular hypertrophy as well as moderate pulmonary hypertension and severe tricuspid regurgitation. The patient is not aware of any prior history of coronary artery disease or congestive heart failure or cardiac arrhythmia and never seen any technology intern before. She was tested positive for cocaine and amphetamine as well. The rest of the blood work came in to be unremarkable. The examination is remarkable for mild change in mental status/lethargy along with regular rate and rhythm and clear breathing sounds bilaterally and no lower extremity edema and soft nontender abdomen. Please note that acute coronary syndrome was ruled out and the troponin came in to be unremarkable 09/15/2023 The patient was seen and evaluated this morning. Overall she is stable beside the pressure being on the higher side and she continues to be tachycardic. I'm going to increase the dose of Cardizem and also increase the dose of hydralazine. No pain in the chest and no shortness of breath. She has been maintaining normal sinus mechanism. She was ruled out for acute coronary syndrome. The echo showed normal LV systolic function with evidence of hypertensive heart disease. If the pressure remains elevated by tomorrow I would consider adding diuretics to the current medical regimen and also persistent hypertension to be ruled out. The examination is remarkable for the patient seems to be not in any pain or distress with a regular rate and rhythm and diminished breathing sounds bilaterally and no lower extremities edema noted Assessment Hypertension urgency Drug abuse as described above Pulmonary hypertension likely secondary to hypertensive heart disease Systemic hypertension Smoking Plan Continue the current medical regimen Increase the dose of Cardizem and increase the dose of hydralazine Consider adding diuretics Rule out resistant hypertension down the line Objective - Vital Signs Vital signs: Vital Signs Temp 97.9 F 09/15/23 04:00 Pulse 121 H 09/15/23 07:00 Resp 30 H 09/15/23 07:00 BP 147/98 09/15/23 07:00 Pulse Ox 100 09/15/23 07:00 FiO2 Intake & Output 09/14/23 09/15/23 09/15/23 18:59 06:59 18:59 Intake Total 1553.176 403.1 Output Total 1200 1420 50 Balance 353.176 -1016.9 -50 Weight 58.8 kg Intake: Intake, IV Titration 53.176 3.1 Amount Clevidipine Butyrate 25 3.1 mg In Empty Bag 1 bag @ 1 MG/HR 2 mls/hr IV .Q24H [facility] Rx#:[id number] Dexmedetomidine/0.9% NaCl 53.176 (Pmx) 400 mcg In Empty Bag 1 bag @ 0.2 MCG/KG/HR 3.062 mls/hr IV .Q24H [facility] Rx#:[id number] Oral 1500 400 Output: Urine 1200 1420 50 Other: Voiding Method Indwelling Catheter Indwelling Catheter # Bowel Movements 1 - Labs CBC & Chem 7: 09/14/23 05:43 09/14/23 05:43
[2023-09-15] MEDS: QUEtiapine 25 MG TAB PO SCH ×3 (08:16→21:00)
[2023-09-15] MEDS: NICOTINE 14MG/24HR PATCH TRANSDERM SCH (08:16)
[2023-09-15] MEDS: cloNIDine HCL 0.1 MG TAB PO SCH ×2 (08:16→21:01)
[2023-09-15] MEDS: hydrALAZINE HCL 25 MG TAB PO SCH ×3 (08:16→21:00)
[2023-09-15] MEDS: DILTIAZEM ORAL 30 MG TAB PO SCH ×3 (08:17→21:01)
[2023-09-15] MEDS: HEPARIN SODIUM,PORCINE 5,000 UNIT/ML 1 ML VIAL SQ SCH ×2 (08:17→21:01)
--- NOTE | 2023-09-15 10:37 | P.PN ---
Subjective Progress Note Date: 09/15/23 This is a 47-year-old female patient who was recently admitted to [facility] [address] [facility] for cocaine and methamphetamine abuse. She was only there 1 day and she was found to have significant hypertension headaches and was brought here to the emergency room last evening. CT scan of the brain revealed no acute intracranial process. He had been having ongoing refractory hypertension despite multiple medications without much improvement. She is currently on a nitroglycerin drip at 5 mcg/m. She will be initiated on clevidipine for blood pressure control and Precedex. This will require i ntensive care unit admission and we are consulted for the same. She is seen in the emergency department. Awake, alert, restless and agitated. Blood pressure 208/119. Mean arterial pressure of 148. White count 8.9. Hemoglobin 14.7. Sodium 141 potassium 4.1. Bicarb 24. BUN 28. Creatinine 1.03. Glucose 117. Troponins negative 2. Urine drug screen positive for amphetamines, methamphetamines and cocaine. She is maintaining O2 saturations in the 90s on room air. EKG reveals sinus tachycardia in the 130s. The patient is seen today 09/14/2023 in follow-up in the intensive care unit. She is currently resting comfortably in bed. Awake and alert in no acute distress. She is continued on Precedex at 0.4 mcg/kg per hour. He is maintaining good O2 saturation in the mid 90s on room air. She's been afebrile. Hemodynamically stable. Having some episodes of brief SVT. Cardiology is consulted. Echocardiogram revealed concentric LVH with normal LV function. Mild pulmonary hypertension. Severe tricuspid regurgitation. White count 9.4. Hemoglobin 15.4. Platelets 231. Sodium 136. Potassium 4.9. Bicarb 19. BUN 23. Creatinine 1.12. Glucose 110. She is continued on clonidine, Cardizem, hydralazine for blood pressure control. She is off the clevidipine and nitroglycerin drips. The patient is seen today in 09/15/2023 and follow-up in the intensive care unit. She is more awake and alert today. More cooperative. She is maintaining O2 saturation the 90s on room air. No IV fluids. She's been off the Precedex. Off Cleviprex and off nitroglycerin drip. Her blood pressure is better controlled on oral medications. She remains on Seroquel. Nicoderm patch in p lace. Heparin for DVT prophylaxis. Count 9.4. Hemoglobin 15.4. Sodium 136. Potassium 4.9. Bicarb 19. BUN 23. Creatinine 1.12. Glucose 110. Objective - Vital Signs Vital signs: Vital Signs Temp 97.8 F 09/15/23 08:00 Pulse 125 H 09/15/23 09:00 Resp 20 09/15/23 09:00 BP 146/102 09/15/23 08:00 Pulse Ox 100 09/15/23 09:00 FiO2 Intake & Output 09/14/23 09/15/23 09/15/23 18:59 06:59 18:59 Intake Total 1553.176 403.1 Output Total 1200 1420 200 Balance 353.176 -1016.9 -200 Weight 58.8 kg Intake: Intake, IV Titration 53.176 3.1 Amount Clevidipine Butyrate 25 3.1 mg In Empty Bag 1 bag @ 1 MG/HR 2 mls/hr IV .Q24H [facility] Rx#:[id number] Dexmedetomidine/0.9% NaCl 53.176 (Pmx) 400 mcg In Empty Bag 1 bag @ 0.2 MCG/KG/HR 3.062 mls/hr IV .Q24H [facility] Rx#:[id number] Oral 1500 400 Output: Urine 1200 1420 200 Other: Voiding Method Indwelling Catheter Indwelling Catheter Indwelling Catheter # Bowel Movements 1 1 - Exam GENERAL EXAM: Alert, calm and cooperative, 47-year-old female, on room air, in no apparent distress. HEAD: Normocephalic. EYES: Normal reaction of pupils, equal size. NOSE: Clear with pink turbinates. THROAT: No erythema or exudates. NECK: No masses, no JVD. CHEST: No chest wall deformity. LUNGS: Equal air entry with no crackles, wheeze, rhonchi or dullness. CVS: S1 and S2 normal with no audible murmur, regular rhythm. ABDOMEN: No hepatosplenomegaly, normal bowel sounds, no guarding or rigidity. SPINE: No scoliosis or deformity SKIN: No rashes CENTRAL NERVOUS SYSTEM: No focal deficits, tone is normal in all 4 extremities. EXTREMITIES: There is no peripheral edema. No clubbing, no cyanosis. Peripheral pulses are intact. - Labs CBC & Chem 7: 09/14/23 05:43 09/14/23 05:43 Assessment and Plan Assessment: Hypertensive urgency suspect secondary to polysubstance withdrawal Episodes of supraventricular tachycardia secondary to above Polysubstance abuse with urine drug screen positive for amphetamines, methamphetamines and cocaine Recent admission to [facility] and found to be hypertensive History of CVA/TIA History of hypertension History of endocarditis Chronic and ongoing tobacco dependence History of depression History of polysubstance abuse including cocaine, heroin, marijuana, metha mphetamines, opiates, and prescription and drug abuse Plan: The patient was seen and evaluated Labs and medications reviewed Stable and on room air Blood pressure improved and on oral medications Transfer to the regular medical floor with telemetry We will continue to follow I have personally seen and examined the patient, performed the documentation and the assessment and plan as written. Number of minutes spent on the visit: 10.
--- NOTE | 2023-09-15 14:19 | P.PN ---
Subjective Progress Note Date: 09/15/23 History of present illness; patient is 47-year-old lady with past medical significant for polysubstance abuse who presented to the ER as a transfer from [place] for elevated blood pressure. Patient was being [place] for rehab for her methamphetamine and heroin abuse. On checking there she was found to have elevated blood pressure. Patient was complaining of headache. Denied any chest pain. There is no complaint of shortness of breath. No complain of nausea, vomiting abdominal pain. Because of this elevated blood pressure, patient was sent to the ER for further evaluation Initial lab work done in the ER showed WBC 7.9, hemoglobin 14.1, platelet count 209, sodium 1:30, potassium 4.1, BUN 33, creatinine 1.12, glucose 98, calcium 9 Urine drug screen positive for amphetamines , methamphetamines, cocaine EKG done in the ER showed heart rate of 78, no ST segment elevation or depressi on seen, no T-wave inversions seen. CT head done showed no acute intracranial process Patient admitted to internal medicine service 09/14/2023 Assumed care of the patient today. Remains in the intensive care unit. From [place] for polysubstance abuse with drug toxicology showing amphetamines, methamphetamines, cocaine. Patient was on IV cleviprex and IV precedex which are currently on hold. Would recommend to decrease clonidine at this time and begin weaning. Patient was also given nitro gtt for hypertension. Most recent BP 146/84. Patient is lethargic. Sodium 136, potassium 4.9, BUN 23, creatinine 1.12, glucose 110. Echocardiogram showing normal LV function mild pulmonary hypertension and severe TR. 09/15/2023 Patient remains in the ICU. More awake today. Alert and oriented x 3. Tolerating diet. Off all gtts. Today was tachycardic with heart rate 120s and also elevated BP 146/102. Cardizem was increased by cardiology to 60 TID. Echocardiogram shows severe TR. Discussed with patient states she was treated down in [facility] for endocarditis did not have any surgical intervention and was treated with 30 days of outpatient antibiotics. States she never went back for follow up but has not used IV drugs for over 10 years since the diagnosis of endocarditis. REVIEW OF SYSTEMS: CONSTITUTIONAL: No fever, no malaise, no fatigue. HEENT: No recent visual problems or hearing problems. Denied any sore throat. CARDIOVASCULAR: No chest pain, orthopnea, PND, no palpitations, no syncope. PULMONARY: No shortness of breath, no cough, no hemoptysis. GASTROINTESTINAL: No diarrhea, no nausea, no vomiting, no abdominal pain. NEUROLOGICAL: No headaches, no weakness, no numbness. Physical Examination -GENERAL: The patient is alert and oriented x2-3, lethargic, mildly drowsy Well developed, well nourished. Generally weak HEENT: Pupils are round and equally reacting to light. EOMI. No scleral icterus. No conjunctival pallor. Normocephalic, atraumatic. No pharyngeal erythema. No thyromegaly. CARDIOVASCULAR: S1 and S2 present. No murmurs, rubs, or gallops. PULMONARY: Chest is clear to auscultation, no wheezing , no crackles. ABDOMEN: Soft, nontender, nondistended, normoactive bowel sounds. No palpable organomegaly. MUSCULOSKELETAL: No joint swelling or deformity. -EXTREMITIES: No cyanosis, clubbing,. Bilateral pitting leg edema. NEUROLOGICAL: Gross neurological examination did not reveal any focal deficits. Diffuse weakness SKIN: No rashes. no petechiae. Assessment Uncontrolled hypertension with urgency requiring nitroglycerin gtt likely due to withdrawal from cocaine Episodes of SVT Severe tricuspid regurgitation Polysubstance abuse Hx of CVA/TIA Hx of hypertension Hx of endocarditis 10 years ago treated with antibiotics pt was noncompliant with f/u. Nicotine dependence Medical noncompliance. GI prophylaxis DVT prophylaxis Full Code Plan Nitroglycerin GTT has been discontinued and blood pressure is more controlled Haldol and seroquel as needed Decrease clonidine to 0.1 mg BID Continue oral cardizem which has been increased to 60 mg TID On PO hydralazine and IV hydralazine PRN Repeat labs in AM The impression and plan of care has been dictated by Elizabeth Blas Nurse Practitioner as directed. Dr. Norma MD I have performed a history and physical examination and medical decision making of this patient, discussed the same with the dictator, and agree with the dictators assessment and plan as written, documented as a scribe. Based on total visit time, I have performed more than 50% of this visit. Objective - Vital Signs Vital signs: Vital Signs Temp 97.8 F 09/15/23 08:00 Pulse 125 H 09/15/23 09:00 Resp 20 09/15/23 09:00 BP 146/102 09/15/23 08:00 Pulse Ox 100 09/15/23 09:00 FiO2 Intake & Output 09/14/23 09/15/23 09/15/23 18:59 06:59 18:59 Intake Total 1553.176 403.1 Output Total 1200 1420 200 Balance 353.176 -1016.9 -200 Weight 58.8 kg Intake: Intake, IV Titration 53.176 3.1 Amount Clevidipine Butyrate 25 3.1 mg In Empty Bag 1 bag @ 1 MG/HR 2 mls/hr IV .Q24H [facility] Rx#:[id number] Dexmedetomidine/0.9% NaCl 53.176 (Pmx) 400 mcg In Empty Bag 1 bag @ 0.2 MCG/KG/HR 3.062 mls/hr IV .Q24H [facility] Rx#:[id number] Oral 1500 400 Output: Urine 1200 1420 200 Other: Voiding Method Indwelling Catheter Indwelling Catheter Indwelling Catheter # Bowel Movements 1 1 - Labs CBC & Chem 7: 09/14/23 05:43 09/14/23 05:43 Assessment and Plan Time with Patient: Less than 30
[2023-09-15] MEDS: HALOPERIDOL LACTATE 5 MG/ML 1 ML VIAL IVP PRN (19:10)
[2023-09-16] MEDS: hydrALAZINE HCL 20 MG/ML 1 ML VIAL IVP PRN (03:12)
[2023-09-16] MEDS: PANTOPRAZOLE 40 MG TABLET PO SCH (06:29)
[2023-09-16] MEDS: hydroCHLOROthiazide 25 MG TAB PO SCH (06:29)
--- NOTE | 2023-09-16 08:55 | P.PN ---
Subjective Progress Note Date: 09/16/23 Principal diagnosis: Hypertension urgency The patient is a 47-year-old female patient with a past medical history significant for hypertension and smoking and history of drug abuse. The patient was brought to the hospital from the rehab facility because of elevated blood pressure. The only symptoms she was experiencing his headache. She reported no pain in the chest and no shortness of breath and no dizziness or lightheadedness and no feeling of heart racing or fluttering and no presyncope or syncope. The pressure was elevated and consistent with hypertension urgency. Subsequently she underwent further cardiac testing including computed tomography scan of brain and that showed no acute abnormalities and also chest x-ray showed no acute abnormalities. The EKG showed sinus mechanism with no significant ST or T-wave abnormalities noted. The echo showed normal LV systolic function with evidence of hypertensive heart disease/severe left ventricular hypertrophy as well as moderate pulmonary hypertension and severe tricuspid regurgitation. The patient is not aware of any prior history of coronary artery disease or congestive heart failure or cardiac arrhythmia and never seen any ncr operator before. She was tested positive for cocaine and amphetamine as well. The rest of the blood work came in to be unremarkable. The examination is remarkable for mild change in mental status/lethargy along with regular rate and rhythm and clear breathing sounds bilaterally and no lower extremity edema and soft nontender abdomen. Please note that acute coronary syndrome was ruled out and the troponin came in to be unremarkable 09/15/2023 The patient was seen and evaluated this morning. Overall she is stable beside the pressure being on the higher side and she continues to be tachycardic. I'm going to increase the dose of Cardizem and also increase the dose of hydralazine. No pain in the chest and no shortness of breath. She has been maintaining normal sinus mechanism. She was ruled out for acute coronary syndrome. The echo showed normal LV systolic function with evidence of hypertensive heart disease. If the pressure remains elevated by tomorrow I would consider adding diuretics to the current medical regimen and also persistent hypertension to be ruled out. The examination is remarkable for the patient seems to be not in any pain or distress with a regular rate and rhythm and diminished breathing sounds bilaterally and no lower extremities edema noted 09/16/2023 The patient was seen and evaluated this morning. She is feeling better. No pain in the chest. No shortness of breath at this point. She continues to be hypertensive and tachycardic and the dose of Cardizem has increased and she was started on hydrochlorothiazide in addition to the current medical regimen. We'll continue follow-up with the patient and continue adjust her blood pressure medications to get the pressure and heart rate under control. The examination is remarkable for regular rhythm with sinus tachycardia and clear breathing sounds bilaterally and no edema was noted in the lower extremities Assessment Hypertension urgency Drug abuse as described above Pulmonary hypertension likely secondary to hypertensive heart disease Systemic hypertension Smoking Plan Continue the current medical regimen Increase the dose of Cardizem Add hydrochlorothiazide Follow-up with the patient Objective - Vital Signs Vital signs: Vital Signs Temp 98.6 F 09/15/23 20:44 Pulse 118 H 09/16/23 05:39 Resp 22 09/15/23 20:44 BP 184/99 09/16/23 05:39 Pulse Ox 98 09/15/23 20:44 FiO2 Intake & Output 09/15/23 09/16/23 09/16/23 18:59 06:59 18:59 Intake Total 600 Output Total 950 150 Balance -950 450 Intake: Oral 600 Output: Urine 950 150 Other: Voiding Method Indwelling Catheter Indwelling Catheter # Voids 2 # Bowel Movements 1 1 - Labs CBC & Chem 7: 09/14/23 05:43 09/14/23 05:43
[2023-09-16] MEDS ORDERED: DILTIAZEM ORAL 30 MG TAB PO SCH (09:00)
[2023-09-16] MEDS: NICOTINE 14MG/24HR PATCH TRANSDERM SCH (09:04)
[2023-09-16] MEDS: QUEtiapine 25 MG TAB PO SCH ×3 (09:04→20:41)
[2023-09-16] MEDS: hydrALAZINE HCL 25 MG TAB PO SCH ×3 (09:04→20:41)
[2023-09-16] MEDS: HEPARIN SODIUM,PORCINE 5,000 UNIT/ML 1 ML VIAL SQ SCH ×2 (09:04→20:43)
[2023-09-16] MEDS: cloNIDine HCL 0.1 MG TAB PO SCH ×2 (09:04→20:41)
--- NOTE | 2023-09-16 11:36 | P.PN ---
Subjective Progress Note Date: 09/16/23 This is a 47-year-old female patient who was recently admitted to [facility] for cocaine and methamphetamine abuse. She was only there 1 day and she was found to have significant hypertension headaches and was brought here to the emergency room last evening. CT scan of the brain revealed no acute intracranial process. He had been having ongoing refractory hypertension despite multiple medications without much improvement. She is currently on a nitroglycerin drip at 5 mcg/m. She will be initiated on clevidipine for blood pressure control and Precedex. This will require i ntensive care unit admission and we are consulted for the same. She is seen in the emergency department. Awake, alert, restless and agitated. Blood pressure 208/119. Mean arterial pressure of 148. White count 8.9. Hemoglobin 14.7. Sodium 141 potassium 4.1. Bicarb 24. BUN 28. Creatinine 1.03. Glucose 117. Troponins negative 2. Urine drug screen positive for amphetamines, methamphetamines and cocaine. She is maintaining O2 saturations in the 90s on room air. EKG reveals sinus tachycardia in the 130s. The patient is seen today 09/14/2023 in follow-up in the intensive care unit. She is currently resting comfortably in bed. Awake and alert in no acute distress. She is continued on Precedex at 0.4 mcg/kg per hour. He is maintaining good O2 saturation in the mid 90s on room air. She's been afebrile. Hemodynamically stable. Having some episodes of brief SVT. Cardiology is consulted. Echocardiogram revealed concentric LVH with normal LV function. Mild pulmonary hypertension. Severe tricuspid regurgitation. White count 9.4. Hemoglobin 15.4. Platelets 231. Sodium 136. Potassium 4.9. Bicarb 19. BUN 23. Creatinine 1.12. Glucose 110. She is continued on clonidine, Cardizem, hydralazine for blood pressure control. She is off the clevidipine and nitroglycerin drips. The patient is seen today in 09/15/2023 and follow-up in the intensive care unit. She is more awake and alert today. More cooperative. She is maintaining O2 saturation the 90s on room air. No IV fluids. She's been off the Precedex. Off Cleviprex and off nitroglycerin drip. Her blood pressure is better controlled on oral medications. She remains on Seroquel. Nicoderm patch in p lace. Heparin for DVT prophylaxis. Count 9.4. Hemoglobin 15.4. Sodium 136. Potassium 4.9. Bicarb 19. BUN 23. Creatinine 1.12. Glucose 110. The patient is seen today 09/16/2023 in follow-up in the intensive care unit. She is currently sitting up at the bedside. Awake and alert in no acute distress. She has been calm and cooperative. She is maintaining O2 saturations in the 90s on room air. She is still having ongoing issues with hypertension despite multiple oral medications. She is now requiring to be back on a clevidipine drip. She remains on heparin for DVT prophylaxis. NicoDerm patch in place. No new labs today. Objective - Vital Signs Vital signs: Vital Signs Temp 98.6 F 09/16/23 08:00 Pulse 117 H 09/16/23 08:00 Resp 18 09/16/23 08:00 BP 202/146 09/16/23 11:10 Pulse Ox 97 09/16/23 08:00 FiO2 Intake & Output 09/15/23 09/16/23 09/16/23 18:59 06:59 18:59 Intake Total 600 Output Total 950 150 Balance -950 450 Intake: Oral 600 Output: Urine 950 150 Other: Voiding Method Indwelling Catheter Indwelling Catheter Indwelling Catheter # Voids 2 # Bowel Movements 1 1 - Exam GENERAL EXAM: Alert, cooperative, 47-year-old female, on room air, no apparent distress. HEAD: Normocephalic. EYES: Normal reaction of pupils, equal size. NOSE: Clear with pink turbinates. THROAT: No erythema or exudates. NECK: No masses, no JVD. CHEST: No chest wall deformity. LUNGS: Equal air entry with no crackles, wheeze, rhonchi or dullness. CVS: S1 and S2 normal with no audible murmur, regular rhythm. ABDOMEN: No hepatosplenomegaly, normal bowel sounds, no guarding or rigidity. SPINE: No scoliosis or deformity SKIN: No rashes CENTRAL NERVOUS SYSTEM: No focal deficits, tone is normal in all 4 extremities. EXTREMITIES: There is no peripheral edema. No clubbing, no cyanosis. Peripheral pulses are intact. - Labs CBC & Chem 7: 09/14/23 05:43 09/14/23 05:43 Assessment and Plan Assessment: Hypertensive urgency suspect secondary to polysubstance withdrawal Episodes of supraventricular tachycardia secondary to above Polysubstance abuse with urine drug screen positive for amphetamines, methamphetamines and cocaine Recent admission to [facility] and found to be hypertensive History of CVA/TIA History of hypertension History of endocarditis Chronic and ongoing tobacco dependence History of depression History of polysubstance abuse including cocaine, heroin, marijuana, met hamphetamines, opiates, and prescription and drug abuse Plan: The patient was seen and evaluated Medications reviewed Stable and on room air Now again hypertensive despite multiple oral medications Plan is to resume clevidipine drip To remain in the intensive care unit We will continue to follow I have personally seen and examined the patient, performed the documentation and the assessment and plan as written. Number of minutes spent on the visit: 10.
[2023-09-16] MEDS: CLEVIDIPINE BUTYRATE 25 MG in EMPTY BAG 1 BAG IV SCH ×4 (11:39→23:56)
[2023-09-16] MEDS: HALOPERIDOL LACTATE 5 MG/ML 1 ML VIAL IVP PRN (11:48)
[2023-09-16] MEDS: diazePAM 5 MG TAB PO PRN (15:54)
--- NOTE | 2023-09-16 23:55 | P.PN ---
Subjective History of present illness; patient is 47-year-old lady with past medical significant for polysubstance abuse who presented to the ER as a transfer from [place] for elevated blood pressure. Patient was being [place] for rehab for her methamphetamine and heroin abuse. On checking there she was found to have elevated blood pressure. Patient was complaining of headache. Denied any chest pain. There is no complaint of shortness of breath. No complain of nausea, vomiting abdominal pain. Because of this elevated blood pressure, patient was sent to the ER for further evaluation Initial lab work done in the ER showed WBC 7.9, hemoglobin 14.1, platelet count 209, sodium 1:30, potassium 4.1, BUN 33, creatinine 1.12, glucose 98, calcium 9 Urine drug screen positive for amphetamines , methamphetamines, cocaine EKG done in the ER showed heart rate of 78, no ST segment elevation or depression seen, no T-wave inversions seen. CT head done showed no acute intracranial process Patient admitted to internal medicine service 09/14/2023 Assumed care of the patient today. Remains in the intensive care unit. From [place] for polysubstance abuse with drug toxicology showing amphetamines, methamphetamines, cocaine. Patient was on IV cleviprex and IV precedex which are currently on hold. Would recommend to decrease clonidine at this time and begin weaning. Patient was also given nitro gtt for hypertension. Most recent BP 146/8 4. Patient is lethargic. Sodium 136, potassium 4.9, BUN 23, creatinine 1.12, glucose 110. Echocardiogram showing normal LV function mild pulmonary hypertension and severe TR. 09/15/2023 Patient remains in the ICU. More awake today. Alert and oriented x 3. Tolerating diet. Off all gtts. Today was tachycardic with heart rate 120s and also elevated BP 146/102. Cardizem was increased by cardiology to 60 TID. Echocardiogram shows severe TR. Discussed with patient states she was treated down in [facility] for endocarditis did not have any surgical intervention and was treated with 30 days of outpatient antibiotics. States she never went back for follow up but has not used IV drugs for over 10 years since the diagnosis of endocarditis. 09/16/2023 Patient awake and alert and oriented to time place percent His complaining of from headache 70/10. Blood pressure is elevated with systolic more than 190 and patient has been placed back on cleveprex Hydralazine 50 Mg 3 Times A Day, Clonidine 0.1 Mg Twice a Day and Hydrochlorothiazide 25 Mg by Mouth Daily Patient Also Looks Agitated and Valium 5 Mg When Necessary Added Twice Daily discussed with the bedside nurse will keep close monitoring Repeat labs in the morning Active Medications Generic Name Dose Route Start Last Admin Trade Name Freq PRN Reason Stop Dose Admin Acetaminophen 650 mg 09/13/23 18:38 09/16/23 11:07 Acetaminophen Tab 325 Mg Tab PO 650 mg Q4HR PRN Administration Fever and/or Mild Pain Clonidine 0.1 mg 09/14/23 21:00 09/16/23 20:41 Clonidine Hcl 0.1 Mg Tab PO 0.1 mg BID DIONNE Administration Diazepam 5 mg 09/16/23 15:38 09/16/23 15:54 Diazepam 5 Mg Tab PO 5 mg BID PRN Administration Withdrawal symptoms Haloperidol Lactate 4 mg 09/14/23 08:40 09/16/23 11:48 Haloperidol Lactate 5 Mg/Ml 1 Ml Vial IVP 4 mg Q6HR PRN Administration Agitation or Acute Psychosis Heparin Sodium (Porcine) 5,000 unit 09/14/23 21:00 09/16/23 20:43 Heparin Sodium,Porcine 5,000 Unit/Ml 1 Ml Vial SQ Not Given Q12HR DIONNE Hydralazine HCl 10 mg 09/13/23 10:32 09/16/23 03:12 Hydralazine Hcl 20 Mg/Ml 1 Ml Vial IVP 10 mg Q6HR PRN Administration Blood Pressure - High Hydralazine HCl 50 mg 09/15/23 09:00 09/16/23 20:41 Hydralazine Hcl 25 Mg Tab PO 50 mg TID DIONNE Administration Hydrochlorothiazide 25 mg 09/16/23 05:45 09/16/23 06:29 Hydrochlorothiazide 25 Mg Tab PO 25 mg DAILY DIONNE Administration Clevidipine 25 mg/ IV Solution 50 mls @ 2 mls/hr 09/16/23 11:30 09/16/23 22:11 IV 8 mg/hr .Q24H DIONNE 16 mls/hr Titration Protocol 1 MG/HR Naloxone HCl 0.2 mg 09/13/23 18:38 Naloxone 0.4 Mg/Ml 1 Ml Vial IV Q2M PRN Opioid Reversal Nicotine 1 patch 09/15/23 09:00 09/16/23 09:04 Nicotine 14mg/24hr Patch TRANSDERM 1 patch DAILY DIONNE Administration Pantoprazole Sodium 40 mg 09/15/23 07:30 09/16/23 06:29 Pantoprazole 40 Mg Tablet PO 40 mg [id number] DIONNE Administration Quetiapine Fumarate 25 mg 09/14/23 09:00 09/16/23 20:41 Quetiapine 25 Mg Tab PO 25 mg TID DIONNE Administration REVIEW OF SYSTEMS: CONSTITUTIONAL: No fever, no malaise, no fatigue. HEENT: No recent visual problems or hearing problems. Denied any sore throat. CARDIOVASCULAR: No chest pain, orthopnea, PND, no palpitations, no syncope. PULMONARY: No shortness of breath, no cough, no hemoptysis. GASTROINTESTINAL: No diarrhea, no nausea, no vomiting, no abdominal pain. NEUROLOGICAL: No headaches, no weakness, no numbness. Objective - Vital Signs Vital signs: Vital Signs Temp 98.6 F 09/16/23 08:00 Pulse 117 H 09/16/23 08:00 Resp 18 09/16/23 08:00 BP 202/146 09/16/23 11:10 Pulse Ox 97 09/16/23 08:00 FiO2 Intake & Output 09/15/23 09/16/23 09/16/23 18:59 06:59 18:59 Intake Total 600 Output Total 950 150 Balance -950 450 Intake: Oral 600 Output: Urine 950 150 Other: Voiding Method Indwelling Catheter Indwelling Catheter Indwelling Catheter # Voids 2 # Bowel Movements 1 1 - Exam GENERAL: The patient is alert and oriented x3, not in any acute distress. Well developed, well nourished. HEENT: Pupils are round and equally reacting to light. EOMI. No scleral icterus. No conjunctival pallor. Normocephalic, atraumatic. No pharyngeal erythema. No thyromegaly. CARDIOVASCULAR: S1 and S2 present. No murmurs, rubs, or gallops. PULMONARY: Chest is clear to auscultation, no wheezing , no crackles. ABDOMEN: Soft, nontender, nondistended, normoactive bowel sounds. No palpable organomegaly. MUSCULOSKELETAL: No joint swelling or deformity. EXTREMITIES: No cyanosis, clubbing, or pedal edema. NEUROLOGICAL: Gross neurological examination did not reveal any focal deficits. SKIN: No rashes. no petechiae. - Labs CBC & Chem 7: 09/14/23 05:43 09/14/23 05:43 Assessment and Plan Assessment: Uncontrolled hypertension with urgency requiring nitroglycerin gtt likely due to withdrawal from cocaine Episodes of SVT Severe tricuspid regurgitation Polysubstance abuse Hx of CVA/TIA Hx of hypertension Hx of endocarditis 10 years ago treated with antibiotics pt was noncompliant with f/u. Nicotine dependence Medical noncompliance Plan: Continue patient in the ICU Continue with cleveprix blood pressure monitoring Continue with the clonidine 0.1 mg twice a day, hydrochlorothiazide 25 daily and hydralazine 50 mg 3 times a day Pulmonary and cardiology consult [facility] when necessary for agitation and with valerie Brown Labs and medication were reviewed.. Continue same treatment. Continue with symptomatic treatment. Resume home medication. Monitor labs and vitals. DVT and GI prophylaxis. Further recommendations as per clinical course of the patient DVT prophylaxis: Subcutaneous heparin GI Prophylaxis: Ppi Prognosis is guarded
[2023-09-17] MEDS: CLEVIDIPINE BUTYRATE 25 MG in EMPTY BAG 1 BAG IV SCH ×11 (02:30→22:26)
[2023-09-17] MEDS: diazePAM 5 MG TAB PO PRN ×2 (03:10→09:18)
[2023-09-17 04:26] LABS: HCT 44.4 % (34.0-46.0); HGB 14.9 gm/dL (11.4-16.0); MCH 31.2 pg (25.0-35.0); MCHC 33.5 g/dL (31.0-37.0); Mean Platelet Volume 7.4; Platelet Count 236 k/uL (150-450); RBC 4.78 m/uL (3.80-5.40); RDW 15.7 % (11.5-15.5); WBC 11.2 k/uL (3.8-10.6)
[2023-09-17 04:33] LABS: ALT 104 U/L (4-34); AST 104 U/L (14-36); African American GFR (CKD) 58 (>60 ml/min/1.73 sqM); Albumin 3.6 g/dL (3.5-5.0); Alkaline Phosphatase 112 U/L (38-126); Blood Urea Nitrogen 31 mg/dL (7-17); Calcium 9.4 mg/dL (8.4-10.2); Carbon Dioxide 20 mmol/L (22-30); Glucose 122 mg/dL (74-99); Non-African American GFR(CKD) 50 (>60 ml/min/1.73 sqM); Total Bilirubin 0.4 mg/dL (0.2-1.3); Total Protein 6.6 g/dL (6.3-8.2)
[2023-09-17 04:40] LABS: Anion Gap 15 mmol/L; Chloride 102 mmol/L (98-107); Potassium 3.4 mmol/L (3.5-5.1); Sodium 137 mmol/L (137-145)
[2023-09-17] MEDS ORDERED: Potassium Replacement Protocol 1 EACH MISC MISCELLANE PRN (05:08)
[2023-09-17] MEDS: POTASSIUM CHLORIDE ER 20 MEQ TAB.ER PO SCH ×2 (05:31→07:04)
[2023-09-17] MEDS: cloNIDine HCL 0.1 MG TAB PO SCH ×2 (09:18→20:03)
[2023-09-17] MEDS: hydroCHLOROthiazide 25 MG TAB PO SCH (09:18)
[2023-09-17] MEDS: PANTOPRAZOLE 40 MG TABLET PO SCH (09:18)
[2023-09-17] MEDS: QUEtiapine 25 MG TAB PO SCH ×3 (09:18→20:04)
[2023-09-17] MEDS: hydrALAZINE HCL 25 MG TAB PO SCH ×3 (09:18→20:04)
[2023-09-17] MEDS: NICOTINE 14MG/24HR PATCH TRANSDERM SCH (09:19)
[2023-09-17] MEDS: HEPARIN SODIUM,PORCINE 5,000 UNIT/ML 1 ML VIAL SQ SCH ×2 (09:19→20:54)
[2023-09-17] MEDS ORDERED: hydrOXYzine HCL 25 MG TAB PO STA (09:42)
[2023-09-17] MEDS ORDERED: PROMETHAZINE 25 MG TAB PO PRN (09:45)
[2023-09-17] MEDS ORDERED: MORPHINE SULFATE 2 MG/ML SYRINGE IM STA (09:52)
[2023-09-17] MEDS ORDERED: MORPHINE SULFATE 2 MG/ML SYRINGE IVP STA (09:57)
--- NOTE | 2023-09-17 11:53 | P.PN ---
Subjective Progress Note Date: 09/17/23 This is a 47-year-old female patient who was recently admitted to [facility] for cocaine and methamphetamine abuse. She was only there 1 day and she was found to have significant hypertension headaches and was brought here to the emergency room last evening. CT scan of the brain revealed no acute intracranial process. He had been having ongoing refractory hypertension despite multiple medications without much improvement. She is currently on a nitroglycerin drip at 5 mcg/m. She will be initiated on clevidipine for blood pressure control and Precedex. This will require i ntensive care unit admission and we are consulted for the same. She is seen in the emergency department. Awake, alert, restless and agitated. Blood pressure 208/119. Mean arterial pressure of 148. White count 8.9. Hemoglobin 14.7. Sodium 141 potassium 4.1. Bicarb 24. BUN 28. Creatinine 1.03. Glucose 117. Troponins negative 2. Urine drug screen positive for amphetamines, methamphetamines and cocaine. She is maintaining O2 saturations in the 90s on room air. EKG reveals sinus tachycardia in the 130s. The patient is seen today 09/14/2023 in follow-up in the intensive care unit. She is currently resting comfortably in bed. Awake and alert in no acute distress. She is continued on Precedex at 0.4 mcg/kg per hour. He is maintaining good O2 saturation in the mid 90s on room air. She's been afebrile. Hemodynamically stable. Having some episodes of brief SVT. Cardiology is consulted. Echocardiogram revealed concentric LVH with normal LV function. Mild pulmonary hypertension. Severe tricuspid regurgitation. White count 9.4. Hemoglobin 15.4. Platelets 231. Sodium 136. Potassium 4.9. Bicarb 19. BUN 23. Creatinine 1.12. Glucose 110. She is continued on clonidine, Cardizem, hydralazine for blood pressure control. She is off the clevidipine and nitroglycerin drips. The patient is seen today in 09/15/2023 and follow-up in the intensive care unit. She is more awake and alert today. More cooperative. She is maintaining O2 saturation the 90s on room air. No IV fluids. She's been off the Precedex. Off Cleviprex and off nitroglycerin drip. Her blood pressure is better controlled on oral medications. She remains on Seroquel. Nicoderm patch in p lace. Heparin for DVT prophylaxis. Count 9.4. Hemoglobin 15.4. Sodium 136. Potassium 4.9. Bicarb 19. BUN 23. Creatinine 1.12. Glucose 110. The patient is seen today 09/16/2023 in follow-up in the intensive care unit. She is currently sitting up at the bedside. Awake and alert in no acute distress. She has been calm and cooperative. She is maintaining O2 saturations in the 90s on room air. She is still having ongoing issues with hypertension despite multiple oral medications. She is now requiring to be back on a clevidipine drip. She remains on heparin for DVT prophylaxis. NicoDerm patch in place. No new labs today. The patient is seen today 09/17/2023 follow-up in the intensive care unit. She had become more restless and agitated throughout the evening and is considering leaving AMA "to get more drugs." Today she is admitting to snorting fentanyl prior to coming here. She has remained quite hypertensive and is still on Cleviprex drip at 12 mg per hour. She is maintaining good O2 saturations in the 90s on room air. White count 11.2. Hemoglobin 14.9. Platelets 236. Sodium 137. Potassium 3.4. Bicarb 20. BUN 31. Creatinine 1.27. Glucose 122. AST 14. ALT 104. She is continued on clonidine, diazepam p.m., Haldol and Seroquel. NicoDerm patches in place. Heparin for DVT prophylaxis. Objective - Vital Signs Vital signs: Vital Signs Temp 97.9 F 09/17/23 08:00 Pulse 98 09/17/23 11:15 Resp 18 09/17/23 11:15 BP 151/101 09/17/23 11:15 Pulse Ox 98 09/17/23 09:00 FiO2 Intake & Output 09/16/23 09/17/23 09/17/23 18:59 06:59 18:59 Intake Total 1323.500 849.200 477.2 Output Total 1900 340 Balance -576.500 509.200 477.2 Weight 58.3 kg Intake: Intake, IV Titration 23.500 199.200 137.2 Amount Clevidipine Butyrate 25 23.500 199.200 137.2 mg In Empty Bag 1 bag @ 1 MG/HR 2 mls/hr IV .Q24H DIONNE Rx#:[id number] Oral 1300 650 340 Output: Urine 1900 340 Other: Voiding Method Bedside Commode Bedside Commode Bedside Commode # Voids 0 - Exam GENERAL EXAM: Alert, agitated, restless 47-year-old female, on room air. HEAD: Normocephalic. EYES: Normal reaction of pupils, equal size. NOSE: Clear with pink turbinates. THROAT: No erythema or exudates. NECK: No masses, no JVD. CHEST: No chest wall deformity. LUNGS: Equal air entry with no crackles, wheeze, rhonchi or dullness. CVS: S1 and S2 normal with no audible murmur, regular rhythm. ABDOMEN: No hepatosplenomegaly, normal bowel sounds, no guarding or rigidity. SPINE: No scoliosis or deformity SKIN: No rashes CENTRAL NERVOUS SYSTEM: No focal deficits, tone is normal in all 4 extremities. EXTREMITIES: There is no peripheral edema. No clubbing, no cyanosis. Peripheral pulses are intact. - Labs CBC & Chem 7: 09/17/23 03:26 09/17/23 03:26 Labs: Abnormal Lab Results - Last 24 Hours (Table) 09/17/23 09/17/23 Range/Units 03:26 03:26 WBC 11.2 H (3.8-10.6) k/uL RDW 15.7 H (11.5-15.5) % Potassium 3.4 L (3.5-5.1) mmol/L Carbon Dioxide 20 L (22-30) mmol/L BUN 31 H (7-17) mg/dL Creatinine 1.27 H (0.52-1.04) mg/dL Glucose 122 H (74-99) mg/dL AST 104 H (14-36) U/L ALT 104 H (4-34) U/L Assessment and Plan Assessment: Hypertensive urgency suspect secondary to polysubstance withdrawal Episodes of supraventricular tachycardia secondary to above Polysubstance abuse with urine drug screen positive for amphetamines, methamphetamines and cocaine, also admits to snorting fentanyl [facility] History of CVA/TIA History of hypertension History of endocarditis Chronic and ongoing tobacco dependence History of depression History of polysubstance abuse including cocaine, heroin, marijuana, methamphetamines, opiates, and prescription and drug abuse Plan: The patient was seen and evaluated Medications and labs reviewed Stable and on room air Remains on a clevidipine drip Cardiology is managing hypertension To remain in the intensive care unit Encouraged not to sign out AGAINST MEDICAL ADVICE We will continue to follow I have personally seen and examined the patient, performed the documentation and the assessment and plan as written. Number of minutes spent on the visit: 10.
[2023-09-17] MEDS: hydrOXYzine HCL 25 MG TAB PO SCH ×3 (13:40→20:03)
--- NOTE | 2023-09-17 13:42 | P.PN ---
Subjective Progress Note Date: 09/17/23 Principal diagnosis: Hypertension urgency The patient is a 47-year-old female patient with a past medical history significant for hypertension and smoking and history of drug abuse. The patient was brought to the hospital from the rehab facility because of elevated blood pressure. The only symptoms she was experiencing his headache. She reported no pain in the chest and no shortness of breath and no dizziness or lightheadedness and no feeling of heart racing or fluttering and no presyncope or syncope. The pressure was elevated and consistent with hypertension urgency. Subsequently she underwent further cardiac testing including computed tomography scan of brain and that showed no acute abnormalities and also chest x-ray showed no acute abnormalities. The EKG showed sinus mechanism with no significant ST or T-wave abnormalities noted. The echo showed normal LV systolic function with evidence of hypertensive heart disease/severe left ventricular hypertrophy as well as moderate pulmonary hypertension and severe tricuspid regurgitation. The patient is not aware of any prior history of coronary artery disease or congestive heart failure or cardiac arrhythmia and never seen any shift supervisor before. She was tested positive for cocaine and amphetamine as well. The rest of the blood work came in to be unremarkable. The examination is remarkable for mild change in mental status/lethargy along with regular rate and rhythm and clear breathing sounds bilaterally and no lower extremity edema and soft nontender abdomen. Please note that acute coronary syndrome was ruled out and the troponin came in to be unremarkable 09/15/2023 The patient was seen and evaluated this morning. Overall she is stable beside the pressure being on the higher side and she continues to be tachycardic. I'm going to increase the dose of Cardizem and also increase the dose of hydralazine. No pain in the chest and no shortness of breath. She has been maintaining normal sinus mechanism. She was ruled out for acute coronary syndrome. The echo showed normal LV systolic function with evidence of hypertensive heart disease. If the pressure remains elevated by tomorrow I would consider adding diuretics to the current medical regimen and also persistent hypertension to be ruled out. The examination is remarkable for the patient seems to be not in any pain or distress with a regular rate and rhythm and diminished breathing sounds bilaterally and no lower extremities edema noted 09/16/2023 The patient was seen and evaluated this morning. She is feeling better. No pain in the chest. No shortness of breath at this point. She continues to be hypertensive and tachycardic and the dose of Cardizem has increased and she was started on hydrochlorothiazide in addition to the current medical regimen. We'll continue follow-up with the patient and continue adjust her blood pressure medications to get the pressure and heart rate under control. The examination is remarkable for regular rhythm with sinus tachycardia and clear breathing sounds bilaterally and no edema was noted in the lower extremities September [id number] The patient was seen and evaluated this morning. She is going through alcohol withdrawal. The pressure remains elevated and currently she is on calcium channel master IV. She is beside that on a clonidine and also she is on hydrochlorothiazide and she is on hydralazine which I am going up with the dose hopefully we can wean her from the IV Clividipine. She is asymptomatic Assessment Hypertension urgency Drug abuse as described above Pulmonary hypertension likely secondary to hypertensive heart disease Systemic hypertension Smoking Plan Continue the current medical regimen Increase the dose of hydralazine Try to wean the patient from Clividipine Objective - Vital Signs Vital signs: Vital Signs Temp 97.9 F 09/17/23 08:00 Pulse 98 09/17/23 11:15 Resp 18 09/17/23 11:15 BP 151/101 09/17/23 11:15 Pulse Ox 98 09/17/23 09:00 FiO2 Intake & Output 09/16/23 09/17/23 09/17/23 18:59 06:59 18:59 Intake Total 1323.500 849.200 599.2 Output Total 1900 340 Balance -576.500 509.200 599.2 Weight 58.3 kg Intake: Intake, IV Titration 23.500 199.200 159.2 Amount Clevidipine Butyrate 25 23.500 199.200 159.2 mg In Empty Bag 1 bag @ 1 MG/HR 2 mls/hr IV .Q24H DIONNE Rx#:[id number] Oral 1300 650 440 Output: Urine 1900 340 Other: Voiding Method Bedside Commode Bedside Commode Bedside Commode # Voids 0 - Labs CBC & Chem 7: 09/17/23 03:26 09/17/23 03:26 Labs: Abnormal Lab Results - Last 24 Hours (Table) 09/17/23 09/17/23 Range/Units 03:26 03:26 WBC 11.2 H (3.8-10.6) k/uL RDW 15.7 H (11.5-15.5) % Potassium 3.4 L (3.5-5.1) mmol/L Carbon Dioxide 20 L (22-30) mmol/L BUN 31 H (7-17) mg/dL Creatinine 1.27 H (0.52-1.04) mg/dL Glucose 122 H (74-99) mg/dL AST 104 H (14-36) U/L ALT 104 H (4-34) U/L
--- NOTE | 2023-09-17 15:02 | P.CN ---
Psychiatric Consult - . Consult date: 09/17/23 Consult:: 09/17/23 14:16 IDENTIFYING DATA: This patient is a 47-year-old female REASON FOR REFERRAL: Psychiatry was consulted for "drug withdrawal " HISTORY OF PRESENT ILLNESS: The patient presented to the hospital on 09/12/23 [place] due to hypertension, SVT and polysubstance use. UDS was positive for amphetamines, methamphetamines, and cocaine. CT head was negative for any acute intracranial process. Patient is currently on Clevedipine, Hydralizine, HCTZ, Atarax 50 QID, nicotine patch, Seroquel 25 mg TID, clonidine 0.1 mg twice a day, Haldol 4 mg Q6H PRN for agitation, and Valium 5 mg twice a day as needed for agitation. She last received Valium 5 mg at 0918 today. However, she continues to have elevated heart rate and blood pressure. Patient states that she was using 0.5 g of methamphetamine daily which she believes was laced with cocaine. She also endorses using 1 g of fentanyl daily with last use being just prior to admission. She immediately and spontaneously requests to be on Subutex but was told that is no longer in the [place] and she was agreeable with trying Suboxone. She states that she received Suboxone and methadone outpatient while she was in [place]. She was clearly informed she would not be discharged on Suboxone and this is only while she is hospitalized to help with withdrawal. She denies other substance use. She reports having been to rehab once in the past and hopes that after being discharged from here she would be able to return back to [place]. In psychiatric review of systems, patient denies depression or anxiety. She denies suicidal and homicidal ideation. She denies auditory and visual hallucinations, paranoia, as asked and assessed. PAST PSYCHIATRIC HISTORY: Patient states that when she was in intermediate, she jumped off of the second floor once in a suicide attempt. She denies other suicide attempts. She denies having ever been to a psychiatric hospital. She denies recently being on any psychotropic medications. PAST MEDICAL HISTORY: Past Medical History: CVA/TIA, Hypertension Additional Past Medical History / Comment(s): Endocarditis History of Any Multi-Drug Resistant Organisms: None Reported Past Surgical History: Appendectomy, Section, Cholecystectomy, Joint Replacement Additional Past Surgical History / Comment(s): right hip replacement, X3, ALLERGIES: as per EMR. CHEMICAL DEPENDENCY HISTORY: as per HPI. FAMILY PSYCHIATRIC/SUBSTANCE USE HISTORY: She states that her mother has depression. She reports her dad has alcohol use disorder and was "crazy " SOCIAL HISTORY: Patient states that she was from [facility] but that she moved down here to be near her daughter but says that her daughter kicked her out since she discovered that patient was using substances. She reports having to 2 daughters and 1 son. She says she is but . MENTAL STATUS EXAM: General Appearance: Patient appears to be stated age is alert, pleasant, and cooperative. Patient appears to have fair hygiene and grooming wearing hospital gown with good eye contact. Behavior: Patient is calmly lying in bed without any agitated behavior. Slightly restless Speech: Patient's speech is fluent and nonpressured. Mood/Affect: Patient reports their mood is "fine", affect is congruent Suicidality/Homicidality: Patient denies having any suicidal or homicidal ideation intent or plan. Perceptions: Patient denies any visual hallucinations and denies any auditory hallucinations Though content/process: There is no evidence of any delusional thought content and thought process is linear and goal-directed. Memory and concentration: AOX3, grossly intact for the purposes of this session. Can spell "WORLD" backwards Judgment and insight: Fair - would like to seek treatment for substance use disorder IMPRESSIONS: Opioid use disorder, severe, in withdrawal - day 5 of withdrawal Methamphetamine use disorder, severe, in withdrawal PLAN: -At this time patient DOES NOT meet criteria for inpatient psychiatric admission. -Would recommend the following medication changes/additions: One-time Suboxone 4 mg today evening and reassess need for tomorrow. RN to monitor COWS prior to administering Subutex and 1 hour afterwards. Patient is not to be discharged with Suboxone since she does not have a Suboxone provider. -[facility] spoke with patient about substance abuse and the harmful effects on medical and mental health, patient verbally understood and agreed. Patient plans to go to [place] after being discharged -Communicated plan to patient's nurse -Will continue to follow along tomorrow and likely sign off -Please contact with any questions.
--- NOTE | 2023-09-17 17:50 | P.PN ---
Subjective History of present illness; patient is 47-year-old lady with past medical significant for polysubstance abuse who presented to the ER as a transfer from [facility] for elevated blood pressure. Patient was being [facility] for rehab for her methamphetamine and heroin abuse. On checking there she was found to have elevated blood pressure. Patient was complaining of headache. Denied any chest pain. There is no complaint of shortness of breath. No complain of nausea, vomiting abdominal pain. Because of this elevated blood pressure, patient was sent to the ER for further evaluation Initial lab work done in the ER showed WBC 7.9, hemoglobin 14.1, platelet count 209, sodium 1:30, potassium 4.1, BUN 33, creatinine 1.12, glucose 98, calcium 9 Urine drug screen positive for amphetamines , methamphetamines, cocaine EKG done in the ER showed heart rate of 78, no ST segment elevation or depression seen, no T-wave inversions seen. CT head done showed no acute intracranial process Patient admitted to internal medicine service 09/14/2023 Assumed care of the patient today. Remains in the intensive care unit. From [place] for polysubstance abuse with drug toxicology showing amphetamines, methamphetamines, cocaine. Patient was on IV cleviprex and IV precedex which are currently on hold. Would recommend to decrease clonidine at this time and begin weaning. Patient was also given nitro gtt for hypertension. Most recent BP 146/8 4. Patient is lethargic. Sodium 136, potassium 4.9, BUN 23, creatinine 1.12, glucose 110. Echocardiogram showing normal LV function mild pulmonary hypertension and severe TR. 09/15/2023 Patient remains in the ICU. More awake today. Alert and oriented x 3. Tolerating diet. Off all gtts. Today was tachycardic with heart rate 120s and also elevated BP 146/102. Cardizem was increased by cardiology to 60 TID. Echocardiogram shows severe TR. Discussed with patient states she was treated down in [facility] ER for endocarditis did not have any surgical intervention and was treated with 30 days of outpatient antibiotics. States she never went back for follow up but has not used IV drugs for over 10 years since the diagnosis of endocarditis. 09/16/2023 Patient awake and alert and oriented to time place percent His complaining of from headache 70/10. Blood pressure is elevated with systolic more than 190 and patient has been placed back on cleveprex Hydralazine 50 Mg 3 Times A Day, Clonidine 0.1 Mg Twice a Day and Hydrochlorothiazide 25 Mg by Mouth Daily Patient Also Looks Agitated and Valium 5 Mg When Necessary Added Twice Daily discussed with the bedside nurse will keep close monitoring Repeat labs in the morning 09/17/2023 Patient remains in the ICU ,chest lying calm in bed, fully awake and oriented in mentation at baseline Patient complains from generalized pain and anxiety due to withdrawal from her substance including cocaine and methamphetamine. She is requesting specifically methadone or Suboxone. I discussed the treatment plan of the patient to give her morphine 2 mg 1, Atarax 50 mg, while continuing on Valium 5 mg. when necessary and consult psychiatry service to help with withdrawal treatment Currently blood pressure looks better 164/94, she is mildly tachycardic and 108 Labs reviewed showed an unremarkable CBC and BMP except for mild hypokalemia Creatinine 1.7 consistent with chronic kidney disease stage III. This WBC 12.2, liver enzymes might be elevated. This was discussed with the bedside nurse. Patient remains on Valium when necessary, Haldol when necessary. My evaluation patient denies signs symptoms of depression, no suicidal or homicidal ideation. Patient told me she planned to go to [facility] upon discharge. Based upon my evaluation patient has capacity to make medical decision Active Medications Generic Name Dose Route Start Last Admin Trade Name Freq PRN Reason Stop Dose Admin Acetaminophen 650 mg 09/13/23 18:38 09/16/23 11:07 Acetaminophen Tab 325 Mg Tab PO 650 mg Q4HR PRN Administration Fever and/or Mild Pain Clonidine 0.2 mg 09/17/23 21:00 Clonidine Hcl 0.1 Mg Tab PO BID DIONNE Diazepam 5 mg 09/16/23 15:38 09/17/23 09:18 Diazepam 5 Mg Tab PO 5 mg BID PRN Administration Withdrawal symptoms Haloperidol Lactate 4 mg 09/14/23 08:40 09/16/23 11:48 Haloperidol Lactate 5 Mg/Ml 1 Ml Vial IVP 4 mg Q6HR PRN Administration Agitation or Acute Psychosis Heparin Sodium (Porcine) 5,000 unit 09/14/23 21:00 09/17/23 09:19 Heparin Sodium,Porcine 5,000 Unit/Ml 1 Ml Vial SQ Not Given Q12HR DIONNE Hydralazine HCl 10 mg 09/13/23 10:32 09/16/23 03:12 Hydralazine Hcl 20 Mg/Ml 1 Ml Vial IVP 10 mg Q6HR PRN Administration Blood Pressure - High Hydralazine HCl 75 mg 09/17/23 16:00 09/17/23 15:52 Hydralazine Hcl 25 Mg Tab PO 75 mg TID DIONNE Administration Hydrochlorothiazide 25 mg 09/16/23 05:45 09/17/23 09:18 Hydrochlorothiazide 25 Mg Tab PO 25 mg DAILY DIONNE Administration Hydroxyzine HCl 50 mg 09/17/23 13:00 09/17/23 13:40 Hydroxyzine Hcl 25 Mg Tab PO 50 mg QID DIONNE Administration Clevidipine 25 mg/ IV Solution 50 mls @ 2 mls/hr 09/16/23 11:30 09/17/23 16:08 IV 12 mg/hr .Q24H DIONNE 24 mls/hr Administration Protocol 1 MG/HR Miscellaneous Information 1 each 09/17/23 05:08 Potassium Replacement Protocol 1 Each Misc MISCELLANE DAILY PRN Per Protocol Protocol Naloxone HCl 0.2 mg 09/13/23 18:38 Naloxone 0.4 Mg/Ml 1 Ml Vial IV Q2M PRN Opioid Reversal Nicotine 1 patch 09/15/23 09:00 09/17/23 09:19 Nicotine 14mg/24hr Patch TRANSDERM 1 patch DAILY DIONNE Administration Pantoprazole Sodium 40 mg 09/15/23 07:30 09/17/23 09:18 Pantoprazole 40 Mg Tablet PO 40 mg [id number] DIONNE Administration Promethazine HCl 12.5 mg 09/17/23 09:45 09/17/23 10:02 Promethazine 25 Mg Tab PO 12.5 mg Q6HR PRN Administration Nausea And Vomiting Quetiapine Fumarate 25 mg 09/14/23 09:00 09/17/23 15:52 Quetiapine 25 Mg Tab PO 25 mg TID DIONNE Administration REVIEW OF SYSTEMS: CONSTITUTIONAL: No fever, no malaise, no fatigue. HEENT: No recent visual problems or hearing problems. Denied any sore throat. CARDIOVASCULAR: No chest pain, orthopnea, PND, no palpitations, no syncope. PULMONARY: No shortness of breath, no cough, no hemoptysis. GASTROINTESTINAL: No diarrhea, no nausea, no vomiting, no abdominal pain. NEUROLOGICAL: No headaches, no weakness, no numbness. Objective - Vital Signs Vital signs: Vital Signs Temp 97.9 F 09/17/23 08:00 Pulse 98 09/17/23 11:15 Resp 18 09/17/23 11:15 BP 151/101 09/17/23 11:15 Pulse Ox 98 09/17/23 09:00 FiO2 Intake & Output 09/16/23 09/17/23 09/17/23 18:59 06:59 18:59 Intake Total 1323.500 849.200 599.2 Output Total 1900 340 Balance -576.500 509.200 599.2 Weight 58.3 kg Intake: Intake, IV Titration 23.500 199.200 159.2 Amount Clevidipine Butyrate 25 23.500 199.200 159.2 mg In Empty Bag 1 bag @ 1 MG/HR 2 mls/hr IV .Q24H DIONNE Rx#:[id number] Oral 1300 650 440 Output: Urine 1900 340 Other: Voiding Method Bedside Commode Bedside Commode Bedside Commode # Voids 0 - Exam GENERAL: The patient is alert and oriented x3, not in any acute distress. Well developed, well nourished. HEENT: Pupils are round and equally reacting to light. EOMI. No scleral icterus. No conjunctival pallor. Normocephalic, atraumatic. No pharyngeal erythema. No thyromegaly. CARDIOVASCULAR: S1 and S2 present. No murmurs, rubs, or gallops. PULMONARY: Chest is clear to auscultation, no wheezing , no crackles. ABDOMEN: Soft, nontender, nondistended, normoactive bowel sounds. No palpable organomegaly. MUSCULOSKELETAL: No joint swelling or deformity. EXTREMITIES: No cyanosis, clubbing, or pedal edema. NEUROLOGICAL: Gross neurological examination did not reveal any focal deficits. SKIN: No rashes. no petechiae. - Labs CBC & Chem 7: 09/17/23 03:26 09/17/23 03:26 Labs: Abnormal Lab Results - Last 24 Hours (Table) 09/17/23 09/17/23 Range/Units 03:26 03:26 WBC 11.2 H (3.8-10.6) k/uL RDW 15.7 H (11.5-15.5) % Potassium 3.4 L (3.5-5.1) mmol/L Carbon Dioxide 20 L (22-30) mmol/L BUN 31 H (7-17) mg/dL Creatinine 1.27 H (0.52-1.04) mg/dL Glucose 122 H (74-99) mg/dL AST 104 H (14-36) U/L ALT 104 H (4-34) U/L Assessment and Plan Assessment: Uncontrolled hypertension with urgency requiring cleveprix and ntg drips likely due to withdrawal from cocaine stimulant withdrawal Episodes of SVT Severe tricuspid regurgitation Polysubstance abuse Hx of CVA/TIA Hx of hypertension Hx of endocarditis 10 years ago treated with antibiotics pt was noncompliant with f/u. Nicotine dependence Medical noncompliance Plan: Continue patient in the ICU Continue with cleveprix blood pressure monitoring, Continue with the clonidine recent dose to 0.2 mg twice a day, hydrochlorothiazide 25 daily and hydralazine 75 mg 3 times a day Pulmonary and cardiology consult Psychiatry consult Continue with Atarax 50 mg when necessary, Valium 5 mg and consult psychiatry service for further management Labs and medication were reviewed.. Continue same treatment. Continue with symptomatic treatment. Resume home medication. Monitor labs and vitals. DVT and GI prophylaxis. Further recommendations as per clinical course of the patient DVT prophylaxis: Subcutaneous heparin GI Prophylaxis: Ppi Prognosis is guarded
[2023-09-17] MEDS ORDERED: BUPRENORPHINE-NALOX 8-2 MG TAB 1 EACH TAB.SUBL SL ONE ×2 (18:00→20:30)
[2023-09-18] MEDS: CLEVIDIPINE BUTYRATE 25 MG in EMPTY BAG 1 BAG IV SCH ×2 (00:12→08:52)
[2023-09-18 04:07] LABS: Basophils % (A) 0 %; Eosinophils # (A) 0.7 k/uL (0-0.7); Eosinophils % (A) 7 %; HCT 44.3 % (34.0-46.0); HGB 14.9 gm/dL (11.4-16.0); Lymphocytes # (A) 1.6 k/uL (1.0-4.8); Lymphocytes % (A) 17 %; MCH 31.3 pg (25.0-35.0); MCHC 33.5 g/dL (31.0-37.0); MCV 93.5 fL (80.0-100.0); Mean Platelet Volume 7.3; Monocytes # (A) 0.5 k/uL (0-1.0); Monocytes % (A) 6 %; Neutrophils # (A) 6.4 k/uL (1.3-7.7); Neutrophils % (A) 67 %; Platelet Count 221 k/uL (150-450); RBC 4.74 m/uL (3.80-5.40); RDW 15.8 % (11.5-15.5); WBC 9.6 k/uL (3.8-10.6)
[2023-09-18 04:12] VITALS: TEMP 98.1
[2023-09-18 05:23] LABS: ALT 124 U/L (4-34); AST 80 U/L (14-36); African American GFR (CKD) 58 (>60 ml/min/1.73 sqM); Albumin 3.4 g/dL (3.5-5.0); Alkaline Phosphatase 110 U/L (38-126); Anion Gap 9 mmol/L; Bilirubin, Delta 0.3 mg/dL (0.0-0.2); Bilirubin,Unconjugated 0.2 mg/dL (0.0-1.1); Blood Urea Nitrogen 35 mg/dL (7-17); Calcium 8.8 mg/dL (8.4-10.2); Carbon Dioxide 24 mmol/L (22-30); Chloride 102 mmol/L (98-107); Glucose 97 mg/dL (74-99); Magnesium 1.9 mg/dL (1.6-2.3); Non-African American GFR(CKD) 51 (>60 ml/min/1.73 sqM); Potassium 3.5 mmol/L (3.5-5.1); Sodium 135 mmol/L (137-145); Total Bilirubin 0.5 mg/dL (0.2-1.3); Total Protein 6.2 g/dL (6.3-8.2)
[2023-09-18] MEDS: PANTOPRAZOLE 40 MG TABLET PO SCH (06:18)
--- NOTE | 2023-09-18 08:24 | P.PN ---
Subjective Progress Note Date: 09/18/23 This is a 47-year-old female patient admitted from [facility] where she was present for cocaine and methamphetamine abuse. The patient was found to have significant hypertension along with headaches and for that reason she was brought into the emergency department. CAT scan of the brain is acutely showed no significant abnormalities. The patient continues to have refractory hypertension. She was started on a nitroglycerin drip and her blood pressure was as high as 208/119 with a mean arterial pressure of 148. Her echocardiogram showed a concentric LVH with normal LV function and mild pulmonary hypertension. She also had severe tricuspid regurgitation. She was admitted to the intensive care unit and she was also having agitation and restl essness and the patient was started on Precedex. Medication also started for blood pressure control and the patient was started on clevidipine drip in combination with nitroglycerin drip. Her blood pressure control improved. The patient yesterday was restless and agitated and she was threatening to leave AMA and she was obviously asking for more drugs. At that point, she also admitted to snorting fentanyl prior to her coming in to the hospital. She was kept in the intensive care for further care. She was maintained on Cleviprex drip. She is also taking hydralazine 75 mg p.o. 3 times daily and 10 mg IV on an estimated basis, she was also maintained on clonidine 0.2 mg twice a day . Regards to her agitation, she is on Haldol 5 mg as needed, Atarax 50 mg 4 times daily, Seroquel 25 mg 3 times daily, she is off the Cleviprex drip. And hydrochlorothiazide 25 mg p.o. daily. Hemodynamically, the patient is stable. She has tachycardic. She has a sinus tachycardia. Oxygen flow is room air when she is showing adequate oxygenation. A psychiatric evaluation was also obtained yesterday and the recommendation was to give her 1 time dose Suboxone 4 mg in the evening and reassess her condition in a.m. yet no recommendations made for long-term Suboxone use. She does not meet inpatient criteria for psychiatric treatment. She needs to go back to [place]. In terms of her blood pressure control, the patient is still on Cleviprex this morning running at 1 mg an hour. Patient is also on clonidine 0.2 mg twice a day and hydralazine 75 mg 3 times a day and hydrochlorothiazide 25 mg by mouth daily. Note that she was not taking any antihypertensive medication outpatient basis. No headaches. No focal neurological deficit. Left work from today shows edematous, 9.6, hemoglobin is 14.9, BUN 35 with a creatinine of 1.2, sodium is 135, LFTs are improved compared to yesterday with an AST of 80, ALP of 124 and alkaline phosphatase of 110. Objective - Vital Signs Vital signs: Vital Signs Temp 98.1 F 09/18/23 04:00 Pulse 104 H 09/18/23 07:00 Resp 28 H 09/18/23 07:00 BP 153/104 09/18/23 07:00 Pulse Ox 93 L 09/18/23 07:00 FiO2 Intake & Output 09/17/23 09/18/23 09/18/23 18:59 06:59 18:59 Intake Total 961.167 199.534 Output Total 1250 300 Balance -288.833 -100.466 Intake: Intake, IV Titration 301.167 199.534 Amount Clevidipine Butyrate 25 301.167 199.534 mg In Empty Bag 1 bag @ 1 MG/HR 2 mls/hr IV .Q24H DIONNE Rx#:[id number] Oral 660 0 Output: Urine 1250 300 Other: Voiding Method Bedside Commode Bedside Commode # Voids 0 0 - Exam GENERAL EXAM: Alert, agitated, restless 47-year-old female, on room air. HEAD: Normocephalic. EYES: Normal reaction of pupils, equal size. NOSE: Clear with pink turbinates. THROAT: No erythema or exudates. NECK: No masses, no JVD. CHEST: No chest wall deformity. LUNGS: Equal air entry with no crackles, wheeze, rhonchi or dullness. CVS: S1 and S2 normal with significant murmur grade 4/6 heard throughout the precordium audible murmur, regular rhythm. ABDOMEN: No hepatosplenomegaly, normal bowel sounds, no guarding or rigidity. SPINE: No scoliosis or deformity SKIN: No rashes CENTRAL NERVOUS SYSTEM: No focal deficits, tone is normal in all 4 extremities. EXTREMITIES: There is no peripheral edema. No clubbing, no cyanosis. Peripheral pulses are intact. - Labs CBC & Chem 7: 09/18/23 03:55 09/18/23 03:55 Labs: Abnormal Lab Results - Last 24 Hours (Table) 09/18/23 09/18/23 Range/Units 03:55 03:55 RDW 15.8 H (11.5-15.5) % Sodium 135 L (137-145) mmol/L BUN 35 H (7-17) mg/dL Creatinine 1.26 H (0.52-1.04) mg/dL Delta Bilirubin 0.3 H (0.0-0.2) mg/dL AST 80 H (14-36) U/L ALT 124 H (4-34) U/L Total Protein 6.2 L (6.3-8.2) g/dL Albumin 3.4 L (3.5-5.0) g/dL Assessment and Plan Plan: Hypertensive urgency suspect secondary to polysubstance withdrawal, BP is under better control Episodes of supraventricular tachycardia secondary to above, Recovered Polysubstance abuse with urine drug screen positive for amphetamines, metham phetamines and cocaine, also admits to snorting fentanyl Recent admission to [facility] and found to be hypertensive History of CVA/TIA History of hypertension History of endocarditis Chronic and ongoing tobacco dependence History of depression History of polysubstance abuse including cocaine, heroin, marijuana, methamphetamines, opiates, and prescription and drug abuse Plan: Add Norvasc 10 mg by mouth daily and wean the patient off Cleviprex Continue clonidine 0.2 mg twice a day Continue hydrochlorothiazide Continue hydralazine 75 mg 3 times a day Advance diet as tolerated Watch for any signs of substance withdrawal including amphetamines and fentanyl Transferred out of the intensive care unit today. Case management for possible [place] transferred
[2023-09-18] MEDS: NICOTINE 14MG/24HR PATCH TRANSDERM SCH (08:41)
[2023-09-18] MEDS: hydrALAZINE HCL 25 MG TAB PO SCH ×2 (08:42→16:17)
[2023-09-18] MEDS: hydroCHLOROthiazide 25 MG TAB PO SCH (08:42)
[2023-09-18] MEDS: cloNIDine HCL 0.1 MG TAB PO SCH (08:42)
[2023-09-18] MEDS: hydrOXYzine HCL 25 MG TAB PO SCH ×2 (08:42→12:31)
[2023-09-18] MEDS: QUEtiapine 25 MG TAB PO SCH ×2 (08:42→16:17)
[2023-09-18] MEDS ORDERED: amLODIPine 10 MG TAB PO SCH (09:00)
[2023-09-18] MEDS: HEPARIN SODIUM,PORCINE 5,000 UNIT/ML 1 ML VIAL SQ SCH (09:01)
[2023-09-18 10:48] VITALS: BMI 22.7
[2023-09-18] MEDS ORDERED: MORPHINE SULFATE IR 15 MG TABLET PO STA (12:01)
[2023-09-18] MEDS ORDERED: diphenhydrAMINE 50 MG/ML 1 ML VIAL IVP PRN (12:02)
[2023-09-18] MEDS ORDERED: ONDANSETRON 4 MG/2 ML VIAL IVP PRN (12:41)
--- NOTE | 2023-09-18 13:40 | P.PN ---
Subjective History of present illness; patient is 47-year-old lady with past medical significant for polysubstance abuse who presented to the ER as a transfer from [place] for elevated blood pressure. Patient was being [facility] for rehab for her methamphetamine and heroin abuse. On checking there she was found to have elevated blood pressure. Patient was complaining of headache. Denied any chest pain. There is no complaint of shortness of breath. No complain of nausea, vomiting abdominal pain. Because of this elevated blood pressure, patient was sent to the ER for further evaluation Initial lab work done in the ER showed WBC 7.9, hemoglobin 14.1, platelet count 209, sodium 1:30, potassium 4.1, BUN 33, creatinine 1.12, glucose 98, calcium 9 Urine drug screen positive for amphetamines , methamphetamines, cocaine EKG done in the ER showed heart rate of 78, no ST segment elevation or depression seen, no T-wave inversions seen. CT head done showed no acute intracranial process Patient admitted to internal medicine service 09/14/2023 Assumed care of the patient today. Remains in the intensive care unit. From [place] for polysubstance abuse with drug toxicology showing amphetamines, methamphetamines, cocaine. Patient was on IV cleviprex and IV precedex which are currently on hold. Would recommend to decrease clonidine at this time and begin weaning. Patient was also given nitro gtt for hypertension. Most recent BP 146/8 4. Patient is lethargic. Sodium 136, potassium 4.9, BUN 23, creatinine 1.12, glucose 110. Echocardiogram showing normal LV function mild pulmonary hypertension and severe TR. 09/15/2023 Patient remains in the ICU. More awake today. Alert and oriented x 3. Tolerating diet. Off all gtts. Today was tachycardic with heart rate 120s and also elevated BP 146/102. Cardizem was increased by cardiology to 60 TID. Echocardiogram shows severe TR. Discussed with patient states she was treated down in [facility] for endocarditis did not have any surgical intervention and was treated with 30 days of outpatient antibiotics. States she never went back for follow up but has not used IV drugs for over 10 years since the diagnosis of endocarditis. 09/16/2023 Patient awake and alert and oriented to time place percent His complaining of from headache 70/10. Blood pressure is elevated with systolic more than 190 and patient has been placed back on cleveprex Hydralazine 50 Mg 3 Times A Day, Clonidine 0.1 Mg Twice a Day and Hydrochlorothiazide 25 Mg by Mouth Daily Patient Also Looks Agitated and Valium 5 Mg When Necessary Added Twice Daily discussed with the bedside nurse will keep close monitoring Repeat labs in the morning 09/17/2023 Patient remains in the ICU ,chest lying calm in bed, fully awake and oriented in mentation at baseline Patient complains from generalized pain and anxiety due to withdrawal from her substance including cocaine and methamphetamine. She is requesting specifically methadone or Suboxone. I discussed the treatment plan of the patient to give her morphine 2 mg 1, Atarax 50 mg, while continuing on Valium 5 mg. when necessary and consult psychiatry service to help with withdrawal treatment Currently blood pressure looks better 164/94, she is mildly tachycardic and 108 Labs reviewed showed an unremarkable CBC and BMP except for mild hypokalemia Creatinine 1.7 consistent with chronic kidney disease stage III. This WBC 12.2, liver enzymes might be elevated. This was discussed with the bedside nurse. Patient remains on Valium when necessary, Haldol when necessary. My evaluation patient denies signs symptoms of depression, no suicidal or homicidal ideation. Patient told me she planned to go to [facility] upon discharge. Based upon my evaluation patient has capacity to make medical decision 09/18/2023 I evaluated the patient today twice at morning rounds and after that because of her withdrawal symptoms Patient looks more calm than yesterday, she still feeling site the, some nausea and generalized abdominal pain and aches related to her withdrawal from her psychostimulants like methamphetamine and cocaine. Patient yesterday evaluated by psychiatrist and she doesn't have active symptoms of depression or suicidal ideation, psychiatric and sign off and he did not recommend Suboxone Patient got 1 dose of Suboxone last night from the on-freight caller. Better today was complaining of from more severe withdrawal symptoms and she is homeless and threatens to leave AMA if she is not given Suboxone, while the temperature of side is freezing at 11 Fahrenheit, we told the patient and these risks. She still adamant. Suboxone carries more risks than benefits, I discussed the case with the patient in details. She agrees to take other medication and she is stain. We will order Benadryl for her anxiety and itching. Also we'll order one time dose of morphine 50 mg oral, risks of cardiopulmonary arrest or depression as well as risk of addiction are explained for the patient and she verbalized understanding and acceptance. We'll try to limit the use of narcotics as much as possible on tapered off. Her vitals are stable other than she still mildly hypertensive and tachypneic and tachycardic related mostly to her withdrawal symptoms. She is off calviprex drip for now , She is on Norvasc 10 mg added today as well as hydralazine 75 mg, hydrochlorothiazide 25 mg and clonidine 0.2 mg twice daily. Her sodium is stable at 135-136, creatinine is stable at 1.2. Liver enzymes are improving. She has mild leukocytosis of 11.2. No headache dizziness weakness or numbness. Discussed with the bedside nurse and mental health social worker we will keep the patient today. Plan of care discussed with patient in details and she is agreeable REVIEW OF SYSTEMS: CONSTITUTIONAL: No fever, no malaise, no fatigue. HEENT: No recent visual problems or hearing problems. Denied any sore throat. CARDIOVASCULAR: No chest pain, orthopnea, PND, no palpitations, no syncope. PULMONARY: No shortness of breath, no cough, no hemoptysis. GASTROINTESTINAL: No diarrhea, no nausea, no vomiting, no abdominal pain. NEUROLOGICAL: No headaches, no weakness, no numbness. Active Medications Generic Name Dose Route Start Last Admin Trade Name Freq PRN Reason Stop Dose Admin Acetaminophen 650 mg 09/13/23 18:38 09/16/23 11:07 Acetaminophen Tab 325 Mg Tab PO 650 mg Q4HR PRN Administration Fever and/or Mild Pain Amlodipine Besylate 10 mg 09/18/23 09:00 09/18/23 09:03 Amlodipine 10 Mg Tab PO 10 mg DAILY DIONNE Administration Clonidine 0.2 mg 09/17/23 21:00 09/18/23 08:42 Clonidine Hcl 0.1 Mg Tab PO 0.2 mg BID DIONNE Administration Diazepam 5 mg 09/18/23 07:31 09/18/23 08:49 Diazepam 5 Mg/Ml 2 Ml Inj IVP 5 mg Q4HR PRN Administration Muscle Spasm Diphenhydramine HCl 25 mg 09/18/23 12:02 Diphenhydramine 50 Mg/Ml 1 Ml Vial IVP Q6HR PRN Anxiety Haloperidol Lactate 4 mg 09/14/23 08:40 09/16/23 11:48 Haloperidol Lactate 5 Mg/Ml 1 Ml Vial IVP 4 mg Q6HR PRN Administration Agitation or Acute Psychosis Heparin Sodium (Porcine) 5,000 unit 09/14/23 21:00 09/18/23 09:01 Heparin Sodium,Porcine 5,000 Unit/Ml 1 Ml Vial SQ Not Given Q12HR DIONNE Hydralazine HCl 10 mg 09/13/23 10:32 09/16/23 03:12 Hydralazine Hcl 20 Mg/Ml 1 Ml Vial IVP 10 mg Q6HR PRN Administration Blood Pressure - High Hydralazine HCl 75 mg 09/17/23 16:00 09/18/23 08:42 Hydralazine Hcl 25 Mg Tab PO 75 mg TID DIONNE Administration Hydrochlorothiazide 25 mg 09/16/23 05:45 09/18/23 08:42 Hydrochlorothiazide 25 Mg Tab PO 25 mg DAILY DIONNE Administration Hydroxyzine HCl 50 mg 09/17/23 13:00 09/18/23 12:31 Hydroxyzine Hcl 25 Mg Tab PO 50 mg QID DIONNE Administration Clevidipine 25 mg/ IV Solution 50 mls @ 2 mls/hr 09/16/23 11:30 09/18/23 08:52 IV 1 mg/hr .Q24H [facility] 2 mls/hr Administration Protocol 1 MG/HR Miscellaneous Information 1 each 09/17/23 05:08 Potassium Replacement Protocol 1 Each Misc MISCELLANE DAILY PRN Per Protocol Protocol Naloxone HCl 0.2 mg 09/13/23 18:38 Naloxone 0.4 Mg/Ml 1 Ml Vial IV Q2M PRN Opioid Reversal Nicotine 1 patch 09/15/23 09:00 09/18/23 08:41 Nicotine 14mg/24hr Patch TRANSDERM 1 patch DAILY DIONNE Administration Ondansetron HCl 4 mg 09/18/23 12:41 09/18/23 12:46 Ondansetron 4 Mg/2 Ml Vial IVP 4 mg Q6HR PRN Administration Nausea And Vomiting Pantoprazole Sodium 40 mg 09/15/23 07:30 09/18/23 06:18 Pantoprazole 40 Mg Tablet PO 40 mg [id number] DIONNE Administration Promethazine HCl 12.5 mg 09/17/23 09:45 09/17/23 10:02 Promethazine 25 Mg Tab PO 12.5 mg Q6HR PRN Administration Nausea And Vomiting Quetiapine Fumarate 25 mg 09/14/23 09:00 09/18/23 08:42 Quetiapine 25 Mg Tab PO 25 mg TID DIONNE Administration Objective - Vital Signs Vital signs: Vital Signs Temp 98.1 F 09/18/23 04:00 Pulse 102 H 09/18/23 13:00 Resp 27 H 09/18/23 13:00 BP 150/112 09/18/23 11:00 Pulse Ox 95 09/18/23 13:00 FiO2 Intake & Output 09/17/23 09/18/23 09/18/23 18:59 06:59 18:59 Intake Total 961.167 199.534 606.6 Output Total 1250 300 300 Balance -288.833 -100.466 306.6 Weight 58.3 kg Intake: Intake, IV Titration 301.167 199.534 6.6 Amount Clevidipine Butyrate 25 301.167 199.534 6.6 mg In Empty Bag 1 bag @ 1 MG/HR 2 mls/hr IV .Q24H [facility] Rx#:[id number] Oral 660 0 600 Output: Urine 1250 300 300 Other: Voiding Method Bedside Commode Bedside Commode Bedside Commode # Voids 0 0 - Exam GENERAL: The patient is alert and oriented x3, not in any acute distress. Well developed, well nourished. HEENT: Pupils are round and equally reacting to light. EOMI. No scleral icterus. No conjunctival pallor. Normocephalic, atraumatic. No pharyngeal erythema. No thyromegaly. CARDIOVASCULAR: S1 and S2 present. No murmurs, rubs, or gallops. PULMONARY: Chest is clear to auscultation, no wheezing , no crackles. ABDOMEN: Soft, nontender, nondistended, normoactive bowel sounds. No palpable organomegaly. MUSCULOSKELETAL: No joint swelling or deformity. EXTREMITIES: No cyanosis, clubbing, or pedal edema. NEUROLOGICAL: Gross neurological examination did not reveal any focal deficits. SKIN: No rashes. no petechiae. - Labs CBC & Chem 7: 09/18/23 03:55 09/18/23 03:55 Labs: Abnormal Lab Results - Last 24 Hours (Table) 09/18/23 09/18/23 Range/Units 03:55 03:55 RDW 15.8 H (11.5-15.5) % Sodium 135 L (137-145) mmol/L BUN 35 H (7-17) mg/dL Creatinine 1.26 H (0.52-1.04) mg/dL Delta Bilirubin 0.3 H (0.0-0.2) mg/dL AST 80 H (14-36) U/L ALT 124 H (4-34) U/L Total Protein 6.2 L (6.3-8.2) g/dL Albumin 3.4 L (3.5-5.0) g/dL Assessment and Plan Assessment: Uncontrolled hypertension with urgency requiring cleveprix and ntg drips likely due to withdrawal from cocaine stimulant withdrawal Episodes of SVT Severe tricuspid regurgitation Polysubstance abuse Hx of CVA/TIA Hx of hypertension Hx of endocarditis 10 years ago treated with antibiotics pt was noncompliant with f/u. Nicotine dependence Medical noncompliance Plan: Continue patient in the ICU Discontinue cleveprix per cardiology team, Continue with the clonidine recent dose to 0.2 mg twice a day, hydro chlorothiazide 25 daily and hydralazine 75 mg 3 times a day. Norvasc 10 mg I did Pulmonary and cardiology consult Psychiatry consult signed off the case Treatment withdrawal symptoms Patient is threatening to leave AMA on several occasions. Risks and benefits are explained for her extensively and she verbalized understanding and acceptance to stay in the hospital for now. As per my evaluation has capacity to make medical decision. Continue with Atarax 50 mg when necessary, Valium 5 mg and consult psychiatry service for further management Labs and medication were reviewed.. Continue same treatment. Continue with symptomatic treatment. Resume home medication. Monitor labs and vitals. DVT and GI prophylaxis. Further recommendations as per clinical course of the patient DVT prophylaxis: Subcutaneous heparin GI Prophylaxis: Ppi Prognosis is guarded
[2023-09-18 14:24] VITALS: BP 145/95
--- NOTE | 2023-09-18 14:46 | P.PN ---
Subjective Progress Note Date: 09/18/23 Hypertension urgency The patient is a 47-year-old female patient with a past medical history significant for hypertension and smoking and history of drug abuse. The patient was brought to the hospital from the rehab facility because of elevated blood pressure. The only symptoms she was experiencing his headache. She reported no pain in the chest and no shortness of breath and no dizziness or lightheadedness and no feeling of heart racing or fluttering and no presyncope or syncope. The pressure was elevated and consistent with hypertension urgency. Subsequently she underwent further cardiac testing including computed tomography scan of brain and that showed no acute abnormalities and also chest x-ray showed no acute abnormalities. The EKG showed sinus mechanism with no significant ST or T-wave abnormalities noted. The echo showed normal LV systolic function with evidence of hypertensive heart disease/severe left ventricular hypertrophy as well as moderate pulmonary hypertension and severe tricuspid regurgitation. The patient is not aware of any prior history of coronary artery disease or congestive heart failure or cardiac arrhythmia and never seen any mechanical field engineer before. She was tested positive for cocaine and amphetamine as well. The rest of the blood work came in to be unremarkable. The examination is remarkable for mild change in mental status/lethargy along with regular rate and rhythm and clear breathing sounds bilaterally and no lower extremity edema and soft non tender abdomen. Please note that acute coronary syndrome was ruled out and the troponin came in to be unremarkable 09/15/2023 The patient was seen and evaluated this morning. Overall she is stable beside the pressure being on the higher side and she continues to be tachycardic. I'm going to increase the dose of Cardizem and also increase the dose of hydralazine. No pain in the chest and no shortness of breath. She has been maintaining normal sinus mechanism. She was ruled out for acute coronary syndrome. The echo showed normal LV systolic function with evidence of hypertensive heart disease. If the pressure remains elevated by tomorrow I would consider adding diuretics to the current medical regimen and also persistent hypertension to be ruled out. The examination is remarkable for the patient seems to be not in any pain or distress with a regular rate and rhythm and diminished breathing sounds bilaterally and no lower extremities edema noted 09/16/2023 The patient was seen and evaluated this morning. She is feeling better. No pain in the chest. No shortness of breath at this point. She continues to be hypertensive and tachycardic and the dose of Cardizem has increased and she was started on hydrochlorothiazide in addition to the current medical regimen. We'll continue follow-up with the patient and continue adjust her blood pressure medications to get the pressure and heart rate under control. The examination is remarkable for regular rhythm with sinus tachycardia and clear breathing sounds bilaterally and no edema was noted in the lower extremities September [id number] The patient was seen and evaluated this morning. She is going through alcohol withdrawal. The pressure remains elevated and currently she is on calcium channel master IV. She is beside that on a clonidine and also she is on hydrochlorothiazide and she is on hydralazine which I am going up with the dose hopefully we can wean her from the IV Clividipine. She is asymptomatic 09/18/22 Patient is seen at bedside this a.m. Patient is going through alcohol withdrawal. On telemetry she is in sinus tachycardia with heart rate around 100-110 bpm. she was deemed of IV calcium channel master and is currently on oral antihypertensives. Blood pressure is better controlled today. BP 150/112, patient wanted me to prescribe Suboxone. Labs show BUN 35, creatinine 1.26 Assessment Hypertension urgency, now better Drug abuse as described above Alcohol withdrawal Pulmonary hypertension likely secondary to hypertensive heart disease Moderate to severe left ventricular hypertrophy due to uncontrolled hypertension Systemic hypertension Smoking Plan Continue amlodipine, hydralazine, hydrochlorothiazide, clonidine Supportive care for alcohol withdrawal and drug abuse Patient needs outpatient follow-up for management for LVH and better blood pressure control. Patient has drug-seeking behavior Objective - Vital Signs Vital signs: Vital Signs Temp 98.1 F 09/18/23 04:00 Pulse 93 09/18/23 14:00 Resp 23 09/18/23 14:00 BP 145/95 09/18/23 14:00 Pulse Ox 97 09/18/23 14:00 FiO2 Intake & Output 09/17/23 09/18/23 09/18/23 18:59 06:59 18:59 Intake Total 961.167 199.534 606.6 Output Total 1250 300 300 Balance -288.833 -100.466 306.6 Weight 58.3 kg Intake: Intake, IV Titration 301.167 199.534 6.6 Amount Clevidipine Butyrate 25 301.167 199.534 6.6 mg In Empty Bag 1 bag @ 1 MG/HR 2 mls/hr IV .Q24H [facility] Rx#:[id number] Oral 660 0 600 Output: Urine 1250 300 300 Other: Voiding Method Bedside Commode Bedside Commode Bedside Commode # Voids 0 0 - Labs CBC & Chem 7: 09/18/23 03:55 09/18/23 03:55 Labs: Abnormal Lab Results - Last 24 Hours (Table) 09/18/23 09/18/23 Range/Units 03:55 03:55 RDW 15.8 H (11.5-15.5) % Sodium 135 L (137-145) mmol/L BUN 35 H (7-17) mg/dL Creatinine 1.26 H (0.52-1.04) mg/dL Delta Bilirubin 0.3 H (0.0-0.2) mg/dL AST 80 H (14-36) U/L ALT 124 H (4-34) U/L Total Protein 6.2 L (6.3-8.2) g/dL Albumin 3.4 L (3.5-5.0) g/dL
[2023-09-18 15:38] VITALS: PULSE 97; RESP 12
--- NOTE | 2023-09-21 11:14 | P.DS ---
Providers Date of admission: 09/12/23 20:09 Attending physician: Sharon Duran Consults: 09/13/23 09:23 Consult Physician Urgent Consulting Provider: Srinath Rodriguez Consult Reason/Comments: [facility] htn Do you want consulting provider notified?: Yes 09/13/23 14:56 Consult Physician Routine Consulting Provider: Suleiman Hernandez Consult Reason/Comments: Hypertensive emergency Do you want consulting provider notified?: Yes 09/17/23 09:53 Consult Physician Urgent Consulting Provider: Silver Odonnell Consult Reason/Comments: drug withdrawl Do you want consulting provider notified?: Yes Primary care physician: Stated None Hospital Course: Please note patient was not discharged but left AGAINST MEDICAL ADVICE During morning rounding today patient expressed wishes to leave AMA, at that time based upon my evaluation patient has capacity to make medical decision and medical team could not hold her a considerable patient she decided to however I talked to the patient about Risks of leaving AGAINST MEDICAL ADVICE which are explained extensively to the patient including but not limited to the risk of both more severe withdrawal symptoms, substance abuse, addiction, uncontrolled hypertension, stroke, heart attack, organ dysfunction and/or , he verbalized understanding and she agreed to stay in the hospital and continue it receive treatment Patient already has been evaluated by psychiatrist and patient was found ( patient DOES NOT meet criteria for inpatient psychiatric admission.) However after rounding I got a page from the bedside nurse that " patient is going to leave AMA. She arranged for a ride at 1700" Patient left AMA before have a chance to see her or talk to her again. Please refer to progress note from today for more details Plan - Discharge Summary New Discharge Prescriptions: No Action No Known Home Medications Discharge Medication List No Known Home Medications 09/12/23 [History] Follow up Appointment(s)/Referral(s): None,Stated [Primary Care Provider] - 1-2 days Discharge Disposition: LEFT AGAINST MEDICAL ADVICE
== END 2023-09-18 18:57 | disposition left against medical advice (07) | DRG 199 ==
LOC: EC 18:28 → 3SCARD 20:09 → OBSVTOIN 20:09 → 2SICU 09-13 16:16
PROVIDERS: ADMIT Hospitalist; ATTEND Hospitalist
DX: I16.0 Hypertensive urgency (principal); I13.10 Hypertensive heart and chronic kidney disease without heart failure, with stage 1 through stage 4 chronic kidney disease, or unspecified chronic kidney disease; N18.30 Chronic kidney disease, stage 3 unspecified; F06.4 Anxiety disorder due to known physiological condition; F11.13 Opioid abuse with withdrawal; F15.13 Other stimulant abuse with withdrawal; F14.10 Cocaine abuse, uncomplicated; F10.139 Alcohol abuse with withdrawal, unspecified; Z65.3 Problems related to other legal circumstances; E87.6 Hypokalemia; R45.1 Restlessness and agitation; F12.10 Cannabis abuse, uncomplicated; F19.10 Other psychoactive substance abuse, uncomplicated; F17.200 Nicotine dependence, unspecified, uncomplicated; F32.A Depression, unspecified; G43.909 Migraine, unspecified, not intractable, without status migrainosus; I07.1 Rheumatic tricuspid insufficiency; I47.10 Supraventricular tachycardia, unspecified; I27.20 Pulmonary hypertension, unspecified; Z79.899 Other long term (current) drug therapy; Z86.73 Personal history of transient ischemic attack (TIA), and cerebral infarction without residual deficits; Z86.79 Personal history of other diseases of the circulatory system; Z91.199 Patient's noncompliance with other medical treatment and regimen due to unspecified reason; Z96.641 Presence of right artificial hip joint; Z91.51 Personal history of suicidal behavior; Z71.3 Dietary counseling and surveillance
CPT/HCPCS: 36415; 70450; 80048; 80053; 80076; 80306; 83735; 84484; 85025; 85027; 85610; 85730; 93005; 93306; 96361; 96365; 96366; 96368; 96375; 96376; 99285

== ENCOUNTER 2023-12-15 00:52 | Emergency (ER) | payer OTHER ==
--- NOTE | 2023-12-15 01:23 | ED ---
General Adult HPI - General Chief complaint: Dizziness Stated complaint: High blood pressure Time Seen by Provider: 12/15/23 00:54 Source: patient, EMS, RN notes reviewed, old records reviewed Mode of arrival: EMS Limitations: no limitations - History of Present Illness Initial comments: 48-year-old female presenting for evaluation of hypertension. Patient was evaluated at [facility] today for methamphetamine abuse. She states she last used yesterday. Patient was noted to be hypertension with history of hypertension and recent admission for hypertensive urgency approximately 3 months ago. Patient left AGAINST MEDICAL ADVICE at that time and is not currently on any oral medication. She was given clonidine prior to transfer for to the hospital. Patient is asymptomatic. Currently declining evaluation, declining admission, stating she will take oral medications but that is all she will do. - Related Data Previous Rx's Medication Instructions Recorded amLODIPine [Norvasc] 10 mg PO DAILY 30 Days #30 tablet 12/15/23 Allergies Allergy/AdvReac Type Severity Reaction Status Date / Time No Known Allergies Allergy Verified 09/12/23 20:24 Review of Systems ROS Statement: Those systems with pertinent positive or pertinent negative responses have been documented in the HPI. ROS Other: All systems not noted in ROS Statement are negative. Past Medical History Past Medical History: CVA/TIA, Hypertension Additional Past Medical History / Comment(s): Endocarditis History of Any Multi-Drug Resistant Organisms: None Reported Past Surgical History: Appendectomy, Section, Cholecystectomy, Joint Replacement Additional Past Surgical History / Comment(s): right hip replacement, X3, Past Psychological History: Depression Smoking Status: Current every day smoker Past Alcohol Use History: None Reported Past Drug Use History: Cocaine, Heroin, Marijuana, Methamphetamine, Opiates, Prescription Drug Abuse General Exam General appearance: alert, in no apparent distress Head exam: Present: atraumatic, normocephalic Eye exam: Present: normal appearance, PERRL Neck exam: Present: normal inspection. Absent: tenderness, meningismus Respiratory exam: Present: normal lung sounds bilaterally. Absent: respiratory distress, wheezes Cardiovascular Exam: Present: regular rate, normal rhythm GI/Abdominal exam: Present: soft. Absent: distended, tenderness Neurological exam: Present: alert, oriented X3, CN II-XII intact. Absent: motor sensory deficit Psychiatric exam: Present: agitated Skin exam: Present: warm, dry, intact Course Vital Signs 12/15/23 12/15/23 12/15/23 00:54 02:28 03:08 Temperature 98.2 F Pulse Rate 61 74 62 Respiratory 18 18 16 Rate Blood Pressure 194/128 219/149 174/108 O2 Sat by Pulse 95 99 99 Oximetry - Reevaluation(s) Reevaluation #1: 12/15/23 02:30 Patient initially refused even oral antihypertensives. Reluctantly took Norvasc. Reevaluation #2: 12/15/23 03:35 Patient's blood pressure appropriately downtrending with oral medication. Medical Decision Making - Medical Decision Making Was pt. sent in by a medical professional or institution (, PA, MILL ATTENDANT, urgent care, hospital, or half-way...) When possible be specific @ -No Did you speak to anyone other than the patient for history (EMS, parent, family, police, friend...)? What history was obtained from this source @ -No Did you review nursing and triage notes (agree or disagree)? Why? @ -I reviewed and agree with nursing and triage notes Were old charts reviewed (outside hosp., previous admission, EMS record, old EKG, old radiological studies, urgent care reports/EKG's, half-way records)? Report findings @ -No old charts were reviewed Differential Diagnosis hypertensive emergency, hypertensive emergency, accelerated hypertension EKG interpreted by me (3pts min.). @ -As above X-rays interpreted by me (1pt min.). @ -None done CT interpreted by me (1pt min.). @ -None done U/S interpreted by me (1pt. min.). @ -None done What testing was considered but not performed or refused? (CT, X-rays, U/S, labs)? Why? @ -I plan to do blood testing, x-ray, EKG, patient refused. Excepting only oral medication. What meds were considered but not given or refused? Why? @ -None Did you discuss the management of the patient with other professionals (professionals i.e. , DEANA, MILL ATTENDANT, lab, RT, psych nurse, healthcare social worker, service observer, teacher, asset protection officer, family service caseworker)? Give summary @ -No Was smoking cessation discussed for >3mins.? @ -No Was critical care preformed (if so, how long)? @ -No Were there social determinants of health that impacted care today? How? (Homelessness, low income, unemployed, alcoholism, drug addiction, transportation, low edu. Level, literacy, decrease access to med. care, longterm, rehab)? @ -No Was there de-escalation of care discussed even if they declined (Discuss DNR or withdrawal of care, Hospice)? DNR status @ -No What co-morbidities impacted this encounter? (DM, HTN, Smoking, COPD, CAD, Cancer, CVA, ARF, Chemo, Hep., AIDS, mental health diagnosis, sleep apnea, morbid obesity)? @ -Methamphetamine abuse Was patient admitted / discharged? Hospital course, mention meds given and route, prescriptions, significant lab abnormalities, going to OR and other pertinent info. @ -48-year-old female with asymptomatic hypertension. Initial blood pressure is significantly elevated. I did plan further workup and likely IV antihypertensives given the significantly elevated initial pressure. Patient declines. She is alert and oriented and able to make her own decisions. Reluctantly she excepted oral medication she is given 10 mg of Norvasc and did have downtrending blood pressure. She remains asymptomatic. She is adamant that she wants no further testing. I prescribed Norvasc for this patient and recommend that she follow-up with her primary care provider. Undiagnosed new problem with uncertain prognosis? @ -No Drug Therapy requiring intensive monitoring for toxicity (Heparin, Nitro, Insulin, Cardizem)? @ -No Were any procedures done? @ -No Diagnosis/symptom? @Hypertension Acute, or Chronic, or Acute on Chronic? @ -Chronic Uncomplicated (without systemic symptoms) or Complicated (systemic symptoms)? @ -Default Side effects of treatment? @ -No Exacerbation, Progression, or Severe Exacerbation? @ -No Poses a threat to life or bodily function? How? (Chest pain, [place], AR, pneumonia, PE, COPD, DKA, ARF, appy, cholecystitis, CVA, Diverticulitis, Homicidal, Suicidal, threat to staff... and all critical care pts) @ -Yes, hypertensive emergency Disposition Clinical Impression: Hypertension Disposition: HOME SELF-CARE Condition: Fair Instructions (If sedation given, give patient instructions): Hypertension (ED) Prescriptions: amLODIPine [Norvasc] 10 mg PO DAILY 30 Days #30 tablet Is patient prescribed a controlled substance at d/c from ED?: No Referrals: None,Stated [Primary Care Provider] - 1-2 days Iker Lipscomb MD [REFERRING] - 1-2 days Time of Disposition: 03:45
[2023-12-15] MEDS: amLODIPine 10 MG TAB PO STA (02:27)
[2023-12-15 07:59] VITALS: BP 220/123; PULSE 68; RESP 20; TEMP 98.4
== END 2023-12-15 07:36 | disposition home or self-care (01) ==
LOC: EC 00:52
DX: I10 Essential (primary) hypertension (principal); F17.200 Nicotine dependence, unspecified, uncomplicated; F14.90 Cocaine use, unspecified, uncomplicated; F12.90 Cannabis use, unspecified, uncomplicated; F11.90 Opioid use, unspecified, uncomplicated; F15.90 Other stimulant use, unspecified, uncomplicated
CPT/HCPCS: 96361; 96374; 96375; 99284; 99285